=== PATIENT | male | born 1985 | race American Indian/Alaskan Native ===

== ENCOUNTER 2016-10-24 15:24 | Emergency (ER) | payer MEDICAID, OTHER ==
[2016-10-24 15:36] VITALS: BP 154/98
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
[2016-10-24] MEDS ORDERED: Iopamidol 612 MG/ML 150 ML Bottle IVPUSH ONE (15:55)
[2016-10-24] MEDS ORDERED: Sodium Chloride 0.9% 10 ML Syringe FLUSH ONE (15:55)
[2016-10-24] MEDS ORDERED: Ondansetron 4 MG/2 ML SDV IVPUSH ONE (16:42)
[2016-10-24] MEDS ORDERED: HYDROmorphone 0.5 MG/0.5 ML Syringe IVPUSH ONE (16:42)
--- NOTE | 2016-10-24 16:47 | CT ---
CT cervical spine Technique: Multiple axial sections were obtained from above C1 inferiorly to the bottom of T1. Reconstructed sagittal and coronal images were reviewed. Findings: Details of the exam are limited due to photon attenuation secondary to patient body habitus. Vertebral body heights and disc spaces are maintained. No definite fracture is seen. No bony central or bony neural foraminal stenosis is noted. Visualized mastoid sinuses and middle ear cavities are clear. Posterior skull base is intact. No abnormal subluxation is seen. Impression: 1. Diminished details as described above. Within this limitation, nothing acute is definitely appreciated. Diagnostic code #2
--- NOTE | 2016-10-24 16:48 | CT ---
Head CT Technique: Multiple axial sections through the brain were obtained. Intravenous contrast was not utilized. Findings: Slight soft tissue hematoma is noted posteriorly within the scalp. Ventricles along with basal cisterns and sulci over the convexities are within normal limits. No abnormal parenchymal densities are seen. No evidence of intracranial hemorrhage. No midline shift or mass effect is seen. Bone window settings shows slight mucosal thickening within the right maxillary and ethmoid sinuses which is incidental. No acute calvarial abnormality is appreciated. Impression: 1. Sinus findings which are felt to be incidental. 2. Small scalp hematoma posteriorly. 3. No acute intracranial abnormality is identified. Diagnostic code #2
--- NOTE | 2016-10-24 16:52 | CT ---
CT facial bones Technique: Multiple axial sections through the facial bones were obtained. Reconstructed coronal and sagittal images were reviewed. Findings: Slight mucosal thickening is again noted within the right maxillary and ethmoid sinuses. Right and left globes are symmetric. Extraocular muscles and optic nerves are symmetric. No facial bone fracture is identified. Impression: 1. Sinus findings are again noted which are felt to be incidental. 2. Nothing acute is appreciated on CT study of the facial bones. Diagnostic code #2
--- NOTE | 2016-10-24 17:01 | CT ---
CT chest Technique: Multiple axial sections through the chest were obtained. Intravenous contrast was utilized. Findings: Hazy soft tissue density is seen within the superior mediastinum which is believed to represent mild residual thymic tissue which is incidental. Mediastinum and hilar regions are otherwise unremarkable. No coronary artery calcification is seen. No pericardial thickening is seen. Mild dependent atelectasis is seen posteriorly within both lungs. Lungs otherwise are clear. No pulmonary contusion is seen. No pleural effusions or pneumothorax is identified. Bone window settings were reviewed shows no discrete rib fracture. Thoracic spine shows no discrete compression deformity. Reconstructed sagittal views shows no sternal fracture. Impression: 1. Incidental dependent atelectasis. 2. Nothing acute is seen on CT study of the chest. Diagnostic code #2 CT abdomen and pelvis Technique: Multiple axial sections were obtained from above the dome of the diaphragm inferiorly through the pubic symphysis. Intravenous contrast was utilized. No oral contrast has been given. Delayed images were obtained through the bladder. Comparison: No previous exam. Findings: Liver shows mild fatty infiltration. Spleen appears within normal limits. Adrenal glands are unremarkable. Kidneys show symmetric contrast enhancement without hydronephrosis or mass. Aorta shows no aneurysmal dilatation. No retroperitoneal adenopathy is seen. Appendix is seen which is normal. No pelvic mass or adenopathy is seen. No free fluid or inflammatory change is seen within the abdomen or pelvis. Delayed images shows contrast within the distal ureters and within the bladder. Bone window settings were reviewed which shows no discrete fracture within the pelvis. Lumbar spine shows no discrete fracture. Impression: 1. Fatty infiltration within the liver. 2. Nothing acute is identified on CT study of the abdomen and pelvis. Diagnostic code #2
[2016-10-24] MEDS ORDERED: LORazepam 2 MG/ML MDV IVPUSH ONE (17:45)
== END 2016-10-24 18:15 | disposition home or self-care (01) ==
LOC: JD.ED 15:24
DX: S00.81XA Abrasion of other part of head, initial encounter (principal); S50.812A Abrasion of left forearm, initial encounter; R10.84 Generalized abdominal pain; T14.8 Other injury of unspecified body region; Z98.890 Other specified postprocedural states; W50.1XXA Accidental kick by another person, initial encounter
CPT/HCPCS: 36415; 70450; 70486; 71260; 72125; 74177; 80053; 80306; 81001; 83690; 85025; 85610; 85730; 86140; 86850; 86900; 86901; 93005; 96374; 96375; 99285; G0480; J1170; J2060; J2405; J7050; Q9967; 99284

== ENCOUNTER 2019-03-02 13:40 | Emergency (ER) | payer SELFPAY ==
[2019-03-02 14:02] VITALS: BP 145/82; PULSE 88
--- NOTE | 2019-03-02 14:12 | EDM.PDOC ---
ED HPI GENERAL MEDICAL PROBLEM - General Chief Complaint: ENT Problem Stated Complaint: EAR PAIN Time Seen by Provider: 03/02/19 14:06 Source of Information: Reports: Patient History Limitations: Reports: No Limitations - History of Present Illness INITIAL COMMENTS - FREE TEXT/NARRATIVE: 33-year-old male of [place] ancestry presents to the ED with severe right ureter pain. States it started on Sunday night 5 days ago and has gradually intensified. Can't even touch the holes right side of his face or ear or airway on that side for the last 2 days. No noted drainage from the ear. Pain is worse if he touches his ear and feels pain both above his ear anterior to the ear and down along the angle of his mandible into his upper neck inferior to the ear. No known injury to the ear canal. He feels he may be have a mild upper SPECT tract infection. No fever or chills. Onset: Gradual Onset Date: 02/26/19 Duration: Day(s):, Getting Worse Location: Reports: Face (Right ear pain.) Quality: Reports: Ache ( Facial pain.), Pressure, Throbbing Severity: Severe (10 out of 10) Improves with: Reports: None Worsens with: Reports: Other Context: Denies: Activity, Exercise, Lifting, Sick Contact, Trauma, Other Associated Symptoms: Reports: No Other Symptoms Treatments MANAGER AUDIO: Reports: Acetaminophen Right Ear Pain Score (Numeric/FACES): 8 - Related Data Allergies Allergy/AdvReac Type Severity Reaction Status Date / Time No Known Allergies Allergy Verified 03/02/19 13:58 Home Meds: Home Meds Amoxicillin/Potassium Clav [Augmentin 500-125 Tablet] 1 each PO BID #16 tablet 03/02/19 [Rx] Hydrocort/Neomycin/Polymyxin B [Tnpleybz-Smglpkaua-JA Otic Susp] 10 ml .XX ASDIRECTED #1 bottle 03/02/19 [Rx] Omeprazole 20 mg PO DAILY 03/02/19 [History] PARoxetine HCl [Paxil] 20 mg PO DAILY 03/02/19 [History] oxyCODONE HCl/Acetaminophen [Percocet 10-325 mg Tablet] 1 each PO Q4H PRN #14 tablet 03/02/19 [Rx] Past Medical History Cardiovascular History: Reports: Hypertension Gastrointestinal History: Reports: GERD Other Musculoskeletal History: Right humerus fracture Psychiatric History: Reports: Depression - Past Surgical History HEENT Surgical History: Reports: Tonsillectomy Other Musculoskeletal Surgeries/Procedures:: ORIF of right humerus Social & Family History - Family History Family Medical History: Noncontributory - Tobacco Use Smoking Status *Q: Current Every Day Smoker Years of Tobacco use: 5 Packs/Tins Daily: 0.1 - Caffeine Use Caffeine Use: Reports: Soda - Recreational Drug Use Recreational Drug Use: No - Living Situation & Occupation Living situation: Reports: Single Occupation: Unemployed ED ROS ENT - Review of Systems Review Of Systems: See Below Constitutional: Reports: Fatigue, Decreased Appetite (From not sleeping.). Denies: Fever, Chills, Malaise HEENT: Reports: Ear Pain (Severe right ear pain especially to touch the area.), Other. Denies: Dental Pain, Ear Discharge Respiratory: Reports: No Symptoms (Right hemifacial pain.) Cardiovascular: Reports: No Symptoms Endocrine: Reports: No Symptoms GI/Abdominal: Reports: No Symptoms : Reports: No Symptoms Musculoskeletal: Reports: No Symptoms Skin: Reports: No Symptoms Neurological: Reports: No Symptoms Psychiatric: Reports: Depression Hematologic/Lymphatic: Reports: No Symptoms Immunologic: Reports: No Symptoms ED EXAM, ENT - Physical Exam Exam: See Below Exam Limited By: No Limitations General Appearance: Alert, WD/WN, Mild Distress, Other (Vital signs reveal a slightly elevated blood pressure 1 4582. Sats are 98% room air. Respiratory rate is 18. Pulse is 88 in sinus is afebrile) Eye Exam: Bilateral Eye: Normal Inspection Ears: Normal TMs, Canal Swelling (Severe canal swelling is appreciated in the floor of the ear canal and anterior aspect of the ear canal on the right side. The left is normal. Any touching or tugging slightly on the tragus or the ear pinna lower interlobe causes intense pain in his ear. Was no abscess that was amenable to drainage. And/or fluid appreciated. The tympanic membrane is normal on the right side.), Other (There is pain both posterior and anterior to the right ear. Pain along the angle of the mandible but no definitive evidence of peritonitis.) Mouth/Throat: Normal Inspection, Normal Gums, Normal Lips, Normal Teeth, Other ( No evidence of dental infection.) Head: Atraumatic, Normocephalic Neck: Normal Inspection, Supple, Full Range of Motion, Lymphadenopathy (R) Respiratory/Chest: No Respiratory Distress, Lungs Clear, Normal Breath Sounds, No Accessory Muscle Use Cardiovascular: Normal Peripheral Pulses, Regular Rate, Rhythm, No Edema, No Gallop, No Murmur, No Rub Course - Vital Signs Last Recorded V/S: Last Vital Signs Temp 36.4 C 03/02/19 13:59 Pulse 88 03/02/19 13:59 Resp 18 03/02/19 13:59 BP 145/82 H 03/02/19 13:59 Pulse Ox 98 03/02/19 13:59 - Radiology Interpretation Free Text/Narrative:: 33-year-old male presents to the ED with severe pain in his right ear and blaire- face for the last 5 days gradually worsening over that period of time. Examination reveals any tugging on the right ear pinna or the tragus of the ear causes intense pain in the right ear. On inspection there is a membrane is normal on the left side. On inspection of the right side there is marked swelling of the floor of the ear canal on the right side but still I can visualize the tympanic membrane. Pain is worsened when he tries to clench on that side. There is no evidence of peritonitis. He does have some mild anterior lymphadenopathy as well as inferior lymphadenopathy at the angle of the mandible. Treated therefore with Augmentin 500/125 mg tablet twice daily for the next 8 days. Cortisporin drops 2 drops to the right ear every 2 hours for the next 36 hours and then 4 times daily until better. Percocet tabs 10/325 mg one every 4-6 hours necessary for pain relief 14 tabs. Likely be about 3 days before he gets complete pain relief. Follow-up if not better in 4-5 days. Departure - Departure Time of Disposition: 14:06 Disposition: Home, Self-Care 01 Condition: Fair Clinical Impression: External otitis Qualifiers: Noninfectious otitis externa type: unspecified noninfectious type Chronicity: acute Laterality: right - Discharge Information *PRESCRIPTION DRUG MONITORING PROGRAM REVIEWED*: Not Applicable *COPY OF PRESCRIPTION DRUG MONITORING REPORT IN PATIENT CHUCK: Not Applicable Prescriptions: Amoxicillin/Potassium Clav [Augmentin 500-125 Tablet] 1 each PO BID #16 tablet Hydrocort/Neomycin/Polymyxin B [Rkokgkda-Fvicdiwuj-FT Otic Susp] 10 ml .XX ASDIRECTED #1 bottle oxyCODONE HCl/Acetaminophen [Percocet 10-325 mg Tablet] 1 each PO Q4H PRN #14 tablet PRN Reason: Severe right ear pain Referrals: PCP,None [Primary Care Provider] - Forms: ED Department Discharge Additional Instructions: Evaluation the emergent today in regards to severe pain right ear gradually worsening over the last 5 days. No noted drainage from the ear. As you identified you can't hardly touch the right side of your face due to the severity of the pain. Examination you have an acute infection in the floor of your right ear canal. On task and be caused by water's sitting in the middle ear canal after having a shower or irritation of the ear canal from a Q-tip. An infection is introduced into the skin on the floor of the ear canal causing the severe pain in the right side of your face. Treatment is Cortisporin optic drops 2 drops to the right ear every 2 hours for the first day and a half and then 2 drops every 4 hours for 2 days then 2 drops 4 times daily until better. When you can provide your canal up after day 7 and no further pain he may stop the drops. Otherwise continue for full 10 days. Said 10/325 mg tabs 1 every 6 hours as necessary for pain relief with Motrin 600 mg every 6 hours to relieve pain and inflammation. Antibiotic by mouth is Augmentin 500/125 mg. 1 tablet twice daily for the next 8 days to clear up infection. Expect marked improvement over the next 48-72 hours. Try keep all water out of the inferior when you in the shower. May plug with cotton cole and take it out of synergy get out of the shower.
== END 2019-03-02 14:34 | disposition home or self-care (01) ==
LOC: JD.ED 13:40
DX: H60.91 Unspecified otitis externa, right ear (principal); I10 Essential (primary) hypertension; K21.9 Gastro-esophageal reflux disease without esophagitis; F32.9 Major depressive disorder, single episode, unspecified; F17.210 Nicotine dependence, cigarettes, uncomplicated; Z79.899 Other long term (current) drug therapy
CPT/HCPCS: 99282; 99283

== ENCOUNTER 2020-10-16 15:26 | Inpatient (IN) | payer SELFPAY ==
--- NOTE | 2020-10-16 16:27 | EDM.PDOC ---
ED HPI GENERAL MEDICAL PROBLEM - General Chief Complaint: Respiratory Problem Stated Complaint: [facility] AMB Time Seen by Provider: 10/16/20 15:44 Source of Information: Reports: Patient History Limitations: Reports: No Limitations - History of Present Illness INITIAL COMMENTS - FREE TEXT/NARRATIVE: 35-year-old male presents the emergency department via [facility] with complaints of cough, shortness of breath, fever, chills, nausea, vomiting, diarrhea, decreased sense of taste and smell and body aches. Patient states he was diagnosed with Covid 3 days ago however developed symptoms approximately 7 days ago. He states that it started out as what he thought was a sinus infection however it progressed to all the above symptoms. He also admits to having a very poor appetite and has not been able to eat or drink much of anything over the course the past few days. Patient denies any significant medical history other than depression and anxiety for which he takes Zoloft and Ativan. He denies smoking, alcohol or illicit drug use. Patient is currently on oxygen at 4 L per nasal cannula with O2 saturations 92 to 93%. - Related Data Allergies Allergy/AdvReac Type Severity Reaction Status Date / Time No Known Allergies Allergy Verified 03/02/19 13:58 Home Meds: Home Meds Amoxicillin/Potassium Clav [Augmentin 500-125 Tablet] 1 each PO BID #16 tablet 03/02/19 [Rx] Hydrocort/Neomycin/Polymyxin B [Ajalbfsz-Rqvawmrru-SO Otic Susp] 10 ml .XX ASDIRECTED #1 bottle 03/02/19 [Rx] Omeprazole 20 mg PO DAILY 03/02/19 [History] PARoxetine HCl [Paxil] 20 mg PO DAILY 03/02/19 [History] oxyCODONE HCl/Acetaminophen [Percocet 10-325 mg Tablet] 1 each PO Q4H PRN #14 tablet 03/02/19 [Rx] Past Medical History Cardiovascular History: Reports: Hypertension Gastrointestinal History: Reports: GERD Other Musculoskeletal History: Right humerus fracture Psychiatric History: Reports: Depression - Infectious Disease History Infectious Disease History: Reports: Novel Coronavirus - Past Surgical History HEENT Surgical History: Reports: Tonsillectomy Other Musculoskeletal Surgeries/Procedures:: ORIF of right humerus Social & Family History - Family History Family Medical History: No Pertinent Family History - Tobacco Use Tobacco Use Status *Q: Never Tobacco User Second Hand Smoke Exposure: No - Caffeine Use Caffeine Use: Reports: Coffee, Soda - Recreational Drug Use Recreational Drug Use: No - Living Situation & Occupation Living situation: Reports: Single Occupation: Unemployed ED ROS GENERAL - Review of Systems Review Of Systems: Comprehensive ROS is negative, except as noted in HPI. ED EXAM, GENERAL - Physical Exam Exam: See Below Exam Limited By: No Limitations General Appearance: Alert, WD/WN, Mild Distress Ears: Normal External Exam, Hearing Grossly Normal Nose: Normal Inspection Throat/Mouth: Normal Inspection, Normal Lips, Normal Voice, No Airway Compromise Head: Atraumatic Neck: Normal Inspection, Supple Respiratory/Chest: Lungs Clear, Chest Non-Tender, Decreased Breath Sounds Cardiovascular: Normal Peripheral Pulses, Regular Rate, Rhythm, No Edema, No Murmur Peripheral Pulses: 2+: Radial (L), Radial (R) GI/Abdominal: Normal Bowel Sounds, Soft, Non-Tender, No Distention (Male) Exam: Deferred Rectal (Males) Exam: Deferred Back Exam: Normal Inspection Extremities: Normal Inspection Neurological: Alert, Oriented, Normal Cognition Psychiatric: Normal Affect, Normal Mood Skin Exam: Warm, Dry, Intact, Normal Color, No Rash Lymphatic: No Adenopathy Course - Vital Signs Text/Narrative:: Upon assessment, the patient is short of breath at rest. Lung sounds are diminished however it is difficult as the patient is obese with a BMI of 48.8. He denies a productive cough of any sputum. I have placed him on room air and will order arterial blood gases. Respiratory therapy has been notified of this. I have ordered labs via the [employer], including a chest x-ray, EKG and blood cultures x2. Last Recorded V/S: Last Vital Signs Temp 98.0 F 10/16/20 15:43 Pulse 102 H 10/16/20 15:43 Resp 25 H 10/16/20 15:43 BP 108/68 10/16/20 15:43 Pulse Ox 92 L 10/16/20 15:43 - Orders/Labs/Meds Orders: Active Orders 24 hr Category Date Time Status EKG Documentation Completion [RC] STAT Care 10/16/20 16:00 Active Nurse Communication: Isolation [RC] ASDIRECTED Care 10/16/20 16:00 Active Chest 1V Frontal [CR] Stat Exams 10/16/20 16:00 Taken BASIC METABOLIC PANEL,BMP [CHEM] Stat Lab 10/16/20 16:20 Received C-REACTIVE PROTEIN [CHEM] Stat Lab 10/16/20 16:20 Received CULTURE BLOOD [BC] Stat Lab 10/16/20 16:20 Received CULTURE BLOOD [BC] Stat Lab 10/16/20 16:32 Received FERRITIN [CHEM] Routine Lab 10/16/20 16:20 Received HEPATIC FUNCTION PANEL,HFP [CHEM] Stat Lab 10/16/20 16:20 Received LACTATE DEHYDROGENASE,LDH [CHEM] Stat Lab 10/16/20 16:20 Received LACTIC ACID [CHEM] Stat Lab 10/16/20 16:20 Received UA W/DANNY RFLX IF INDICATED [URIN] Routine Lab 10/16/20 15:59 Ordered Blood Culture x2 Reflex Set [OM.PC] Stat Oth 10/16/20 16:02 Ordered Isolation [COMM] Stat Oth 10/16/20 15:59 Ordered Medication Orders Remdesivir 200 mg/ Sodium (Chloride) 250 mls @ 250 mls/hr IV ONETIME ONE Stop: 10/16/20 18:16 Labs: Laboratory Tests 10/16/20 10/16/20 10/16/20 Range/Units 16:20 16:20 16:21 WBC 7.78 (4.23-9.07) K/mm3 RBC 5.13 (4.63-6.08) M/mm3 Hgb 13.8 (13.7-17.5) gm/dl Hct 42.0 (40.1-51.0) % MCV 81.9 D (79.0-92.2) fl MCH 26.9 (25.7-32.2) pg MCHC 32.9 (32.2-35.5) g/dl RDW Std Deviation 42.1 (35.1-43.9) fL Plt Count 269 (163-337) K/mm3 MPV 10.8 (9.4-12.3) fl Neut % (Auto) 87.3 H (34.0-67.9) % Lymph % (Auto) 7.3 L (21.8-53.1) % Mclean % (Auto) 5.3 (5.3-12.2) % Eos % (Auto) 0 L (0.8-7.0) Baso % (Auto) 0.0 L (0.1-1.2) % Neut # (Auto) 6.79 H (1.78-5.38) K/mm3 Lymph # (Auto) 0.57 L (1.32-3.57) K/mm3 Mclean # (Auto) 0.41 (0.30-0.82) K/mm3 Eos # (Auto) 0.00 L (0.04-0.54) K/mm3 Baso # (Auto) 0.00 L (0.01-0.08) K/mm3 PT 10.9 (9.7-12.0) SECONDS INR 1.02 APTT 28.5 (21.7-31.4) SECONDS D-Dimer, Quantitative 0.26 (0.19-0.50) mg/L Puncture Site Rt radial ABG pH 7.41 (7.35-7.45) ABG pCO2 30.8 L (35.0-45.0) mmHg ABG pO2 56.0 L (80.0-100.0) mmHg ABG HCO3 19.0 L (22.0-26.0) meq/L ABG O2 Saturation 86.5 L (96.0-97.0) % ABG Base Excess -4.1 L (-2-2.0) Deion Test Positive O2 Delivery Device Room air Meds: Medications Generic Name Dose Route Start Last Admin Trade Name Freq PRN Reason Stop Dose Admin Remdesivir 200 mg/ Sodium 250 mls @ 250 mls/hr 10/16/20 17:17 Chloride IV 10/16/20 18:16 ONETIME ONE Discontinued Medications Generic Name Dose Route Start Last Admin Trade Name Freq PRN Reason Stop Dose Admin Dexamethasone 6 mg 10/16/20 17:17 Dexamethasone 4 Mg/Ml 5 Ml Mdv IV 10/16/20 17:18 ONETIME ONE - Re-Assessments/Exams Free Text/Narrative Re-Assessment/Exam: 10/16/20 17:30 Hematology reveals a WBC of 7.78, hemoglobin 13.8, hematocrit 42.0, platelet count 269, D-dimer 0.26, ABGs reveal a PCO2 of 30.8, PO2 of 56.0, HCO3 19.0, base excess -4.1 Remainder of the labs are not back yet however Dr. Flynn is here and has seen the patient. He has agreed to admit the patient under his services. He request that I order remdesivir 200 mg IV x1 dose as well as dexamethasone 6 mg IV x1 dose. Nothing acute is appreciated on chest x-ray however formal radiologist report is pending. Departure - Departure Time of Disposition: 17:30 Disposition: Admitted As Inpatient 67 Condition: Fair Clinical Impression: Acute hypoxemic respiratory failure due to COVID-19 - Discharge Information Sepsis Event Note (ED) - Evaluation Sepsis Screening Result: No Definite Risk - Focused Exam Vital Signs: Vital Signs Temp Pulse Resp BP Pulse Ox 10/16/20 15:43 98.0 F 102 H 25 H 108/68 92 L - My Orders Last 24 Hours: My Active Orders 10/16/20 15:59 UA W/DANNY RFLX IF INDICATED [URIN] Routine Isolation [COMM] Stat 10/16/20 16:00 EKG Documentation Completion [RC] STAT Nurse Communication: Isolation [RC] ASDIRECTED Chest 1V Frontal [CR] Stat 10/16/20 16:02 Blood Culture x2 Reflex Set [OM.PC] Stat 10/16/20 16:20 BASIC METABOLIC PANEL,BMP [CHEM] Stat C-REACTIVE PROTEIN [CHEM] Stat CULTURE BLOOD [BC] Stat FERRITIN [CHEM] Routine HEPATIC FUNCTION PANEL,HFP [CHEM] Stat LACTATE DEHYDROGENASE,LDH [CHEM] Stat LACTIC ACID [CHEM] Stat 10/16/20 16:32 CULTURE BLOOD [BC] Stat - Assessment/Plan Last 24 Hours: My Active Orders 10/16/20 15:59 UA W/DANNY RFLX IF INDICATED [URIN] Routine Isolation [COMM] Stat 10/16/20 16:00 EKG Documentation Completion [RC] STAT Nurse Communication: Isolation [RC] ASDIRECTED Chest 1V Frontal [CR] Stat 10/16/20 16:02 Blood Culture x2 Reflex Set [OM.PC] Stat 10/16/20 16:20 BASIC METABOLIC PANEL,BMP [CHEM] Stat C-REACTIVE PROTEIN [CHEM] Stat CULTURE BLOOD [BC] Stat FERRITIN [CHEM] Routine HEPATIC FUNCTION PANEL,HFP [CHEM] Stat LACTATE DEHYDROGENASE,LDH [CHEM] Stat LACTIC ACID [CHEM] Stat 10/16/20 16:32 CULTURE BLOOD [BC] Stat
--- NOTE | 2020-10-16 17:06 | PCM.HP.2 ---
H&P History of Present Illness - General Date of Service: 10/16/20 Admit Problem/Dx: Admission Diagnosis/Problem Admission Diagnosis/Problem Respiratory failure with hypoxia, COVID-19 Pneumonitis Source of Information: Patient - History of Present Illness Initial Comments - Free Text/Narative: Patient is a 35-year-old male with no significant past medical history other than depression and anxiety who presents to the [facility] emergency department with 7 days of cold-like symptoms including rhinorrhea, cough (nonproductive), general muscle and joint aches and pains, nausea/vomiting transiently, and occasional diarrhea. Has had generalized abdominal cramps and discomfort without any specific radiation pattern. No black or blood noted in the vomitus or with bowel movements. No recent sick contacts. No recent travel. Within the past 24 to 36 hours he has started to notice shortness of breath with exertion, and now worse even at rest. This was the main symptom that worried him to most in order to come to the emergency department. He had EMS summoned to the house. He lives alone. He was found to be hypoxic in the field. Patient was placed on supplemental oxygen. He has been requiring 2 to 4 L to stay above 92%. He has been tachypneic and in mild respiratory distress. The patient denies fever. Claims poor p.o. intake for the past day. Patient positive for acute COVID-19. Due to hypoxia patient was referred to the internal medicine service for ongoing treatment. CODE STATUS: Full code. 14 point review of systems was reviewed with the patient entirely and only pert inent for the above information. - Related Data Allergies/Adverse Reactions: Allergies Allergy/AdvReac Type Severity Reaction Status Date / Time No Known Allergies Allergy Verified 03/02/19 13:58 Home Medications: Home Meds Amoxicillin/Potassium Clav [Augmentin 500-125 Tablet] 1 each PO BID #16 tablet 03/02/19 [Rx] Hydrocort/Neomycin/Polymyxin B [Bperxzeu-Mnezhxwxj-AM Otic Susp] 10 ml .XX ASDIRECTED #1 bottle 03/02/19 [Rx] Omeprazole 20 mg PO DAILY 03/02/19 [History] PARoxetine HCl [Paxil] 20 mg PO DAILY 03/02/19 [History] oxyCODONE HCl/Acetaminophen [Percocet 10-325 mg Tablet] 1 each PO Q4H PRN #14 tablet 03/02/19 [Rx] Past Medical History Cardiovascular History: Reports: Hypertension Gastrointestinal History: Reports: GERD Other Musculoskeletal History: Right humerus fracture Psychiatric History: Reports: Anxiety, Depression - Infectious Disease History Infectious Disease History: Reports: Novel Coronavirus - Past Surgical History HEENT Surgical History: Reports: Tonsillectomy Other Musculoskeletal Surgeries/Procedures:: ORIF of right humerus Social & Family History - Family History Family Medical History: No Pertinent Family History - Tobacco Use Tobacco Use Status *Q: Never Tobacco User Second Hand Smoke Exposure: No - Caffeine Use Caffeine Use: Reports: Coffee, Soda - Recreational Drug Use Recreational Drug Use: No - Living Situation & Occupation Living situation: Reports: Single Occupation: Unemployed H&P Review of Systems - Review of Systems: Review Of Systems: Comprehensive ROS is negative, except as noted in HPI. Exam - Exam Exam: See Below - Vital Signs Vital Signs: Last Vital Signs Temp 98.0 F 10/16/20 15:43 Pulse 102 H 10/16/20 15:43 Resp 25 H 10/16/20 15:43 BP 108/68 10/16/20 15:43 Pulse Ox 92 L 10/16/20 15:43 Weight: 380 lb - Exam Quality Assessment: Supplemental Oxygen General: Alert, Cooperative, Mild Distress HEENT: Conjunctiva Clear, Nares Patent, Pupils Equal Neck: Supple, Trachea Midline Lungs: Decreased Breath Sounds, Rales (right middle and lower acosta) Cardiovascular: Tachycardia GI/Abdominal Exam: Normal Bowel Sounds, Soft, Non-Tender, No Distention Extremities: Normal Inspection, No Pedal Edema Skin: Other (multiple tattoos) Neurological: Cranial Nerves Intact Neuro Extensive - Motor, Sensory, Reflexes: CN II-XII Intact Psychiatric: Anxious - Patient Data Lab Results Last 24 hrs: Laboratory Results - last 24 hr 10/16/20 10/16/20 Range/Units 16:20 16:21 WBC 7.78 (4.23-9.07) K/mm3 RBC 5.13 (4.63-6.08) M/mm3 Hgb 13.8 (13.7-17.5) gm/dl Hct 42.0 (40.1-51.0) % MCV 81.9 D (79.0-92.2) fl MCH 26.9 (25.7-32.2) pg MCHC 32.9 (32.2-35.5) g/dl RDW Std Deviation 42.1 (35.1-43.9) fL Plt Count 269 (163-337) K/mm3 MPV 10.8 (9.4-12.3) fl Neut % (Auto) 87.3 H (34.0-67.9) % Lymph % (Auto) 7.3 L (21.8-53.1) % [place] % (Auto) 5.3 (5.3-12.2) % Eos % (Auto) 0 L (0.8-7.0) Baso % (Auto) 0.0 L (0.1-1.2) % Neut # (Auto) 6.79 H (1.78-5.38) K/mm3 Lymph # (Auto) 0.57 L (1.32-3.57) K/mm3 [place] # (Auto) 0.41 (0.30-0.82) K/mm3 Eos # (Auto) 0.00 L (0.04-0.54) K/mm3 Baso # (Auto) 0.00 L (0.01-0.08) K/mm3 Puncture Site Rt radial ABG pH 7.41 (7.35-7.45) ABG pCO2 30.8 L (35.0-45.0) mmHg ABG pO2 56.0 L (80.0-100.0) mmHg ABG HCO3 19.0 L (22.0-26.0) meq/L ABG O2 Saturation 86.5 L (96.0-97.0) % ABG Base Excess -4.1 L (-2-2.0) Deion Test Positive O2 Delivery Device Room air Result Diagrams: 10/16/20 16:20 Imaging Impressions Last 24 hrs: Chest x-ray showing bilateral interstitial edema throughout. Formal reading pending. Sepsis Event Note - Evaluation Sepsis Screening Result: No Definite Risk - Focused Exam Vital Signs: Vital Signs Temp Pulse Resp BP Pulse Ox 10/16/20 15:43 98.0 F 102 H 25 H 108/68 92 L Problem List Initiated/Reviewed/Updated: Yes Orders Last 24hrs: Active Orders 24 hr Category Date Time Status Patient Status [ADT] Routine ADT 10/16/20 16:56 Ordered EKG Documentation Completion [RC] STAT Care 10/16/20 16:00 Active Nurse Communication: Isolation [RC] ASDIRECTED Care 10/16/20 16:00 Active Oxygen Therapy [RC] PRN Care 10/16/20 16:56 Ordered VTE/DVT Education [RC] PER UNIT ROUTINE Care 10/16/20 16:56 Ordered Vital Signs [RC] Q4H Care 10/16/20 16:56 Ordered Chest 1V Frontal [CR] Stat Exams 10/16/20 16:00 Ordered BASIC METABOLIC PANEL,BMP [CHEM] Stat Lab 10/16/20 16:20 Received C-REACTIVE PROTEIN [CHEM] Stat Lab 10/16/20 16:20 Received CULTURE BLOOD [BC] Stat Lab 10/16/20 16:20 Received CULTURE BLOOD [BC] Stat Lab 10/16/20 16:32 Received D-DIMER QUANTITATIVE [COAG] Stat Lab 10/16/20 16:20 Received FERRITIN [CHEM] Routine Lab 10/16/20 16:20 Received HEPATIC FUNCTION PANEL,HFP [CHEM] Stat Lab 10/16/20 16:20 Received INR,PT,PROTHROMBIN TIME [COAG] Routine Lab 10/16/20 16:20 Received LACTATE DEHYDROGENASE,LDH [CHEM] Stat Lab 10/16/20 16:20 Received LACTIC ACID [CHEM] Stat Lab 10/16/20 16:20 Received PTT,PARTIAL THROMBOPLSTIN TIME [COAG] Routine Lab 10/16/20 16:20 Received UA W/DANNY RFLX IF INDICATED [URIN] Routine Lab 10/16/20 15:59 Ordered Blood Culture x2 Reflex Set [OM.PC] Stat Oth 10/16/20 16:02 Ordered Isolation [COMM] Stat Oth 10/16/20 15:59 Ordered Resuscitation Status Routine Resus Stat 10/16/20 16:56 Ordered Assessment/Plan Comment:: 35-year-old male with a past medical history as listed above who presents to the [facility] emergency department with acute hypoxic respiratory failure secondary to acute COVID-19 pneumonitis. 1. Acute hypoxic respiratory failure Secondary to acute COVID-19 pneumonitis. Initiate dexamethasone and remdesivir. Respiratory therapy consult with supplemental oxygen as necessary to titrate to goal of greater than 92%. If patient progresses to requiring more than 10 L of supplemental oxygen the patient will be given convalescent plasma and Tocilizumab. Incentive spirometry. Proning as instructed. Patient has been educated as to the importance of prone positioning. 2. Acute COVID-19 pneumonitis. Plan as above. Add supplemental zinc and vitamin C to regimen. Plan as above as per corticosteroids, remdesivir, convalescent plasma and Tocilizumab. Respiratory treatments as noted above. Bronchodilator inhalers as needed. Hypercoagulable prophylaxis to be determined once all inflammatory markers have been resulted. 3. Anxiety and depression. Patient takes Zoloft and Ativan. We will continue. CODE STATUS: Full code. DVT prophylaxis with enoxaparin.
[2020-10-16] MEDS ORDERED: Dexamethasone 4 MG/ML 5 ML MDV IV ONE (17:17)
[2020-10-16] MEDS ORDERED: REMDESIVIR 200 MG in Sodium Chloride 0.9% 250 ML IV ONE (17:17)
[2020-10-16] MEDS ORDERED: Acetaminophen 325 MG Tab PO PRN (17:26)
[2020-10-16] MEDS ORDERED: Albuterol 0.083% 2.5 MG/3 ML Neb Soln NEB PRN (17:26)
[2020-10-16] MEDS ORDERED: Docusate Sodium 100 MG Cap PO PRN (17:26)
[2020-10-16] MEDS ORDERED: Ondansetron 4 MG Tab.DIS PO PRN (17:26)
[2020-10-16] MEDS ORDERED: Ondansetron 4 MG/2 ML SDV IV PRN (17:26)
--- NOTE | 2020-10-16 20:17 | PCM.EKG ---
#1 Interpretation EKG Date: 10/16/20 Time: 16:20 Rhythm: NSR Rate (Beats/Min): 100 [place]: Normal P-Wave: Present QRS: Normal ST-T: Normal QT: Normal Comparison: NA - No Prior EKG EKG Interpretation Comments: Per Dr. Quevedo interpretation: Sinus tachycardia rate 100; normal QRS; small Q waves in lead III
--- NOTE | 2020-10-17 07:43 | PCM.PN ---
- General Info Date of Service: 10/17/20 Admission Dx/Problem (Free Text): Admission Diagnosis/Problem Admission Diagnosis/Problem Respiratory failure with hypoxia, COVID-19 Pneumonitis Subjective Update: No acute events overnight. No specific nursing concerns. Remains on 3 L supplemental nasal oxygen. Patient proning for a good portion of the night. Continues to use incentive spirometry techniques. Patient states that he feels better but still has some central chest discomfort with coughing and deep breathing. Denies fever. No abdominal complaints or difficulties with voiding. - Patient Data Vitals - Most Recent: Last Vital Signs Temp 97.9 F 10/17/20 04:56 Pulse 65 10/17/20 04:56 Resp 15 10/17/20 04:56 BP 129/88 10/17/20 04:56 Pulse Ox 95 10/17/20 04:56 Weight - Most Recent: 369 lb 1.6 oz I&O - Last 24 Hours: Intake & Output 10/16/20 10/17/20 10/17/20 22:59 06:59 14:59 Intake Total 1450 Output Total 1375 Balance 75 Lab Results Last 24 Hours: Laboratory Results - last 24 hr 10/16/20 10/16/20 10/16/20 Range/Units 16:20 16:20 16:20 WBC 7.78 (4.23-9.07) K/mm3 RBC 5.13 (4.63-6.08) M/mm3 Hgb 13.8 (13.7-17.5) gm/dl Hct 42.0 (40.1-51.0) % MCV 81.9 D (79.0-92.2) fl MCH 26.9 (25.7-32.2) pg MCHC 32.9 (32.2-35.5) g/dl RDW Std Deviation 42.1 (35.1-43.9) fL Plt Count 269 (163-337) K/mm3 MPV 10.8 (9.4-12.3) fl Neut % (Auto) 87.3 H (34.0-67.9) % Lymph % (Auto) 7.3 L (21.8-53.1) % [place] % (Auto) 5.3 (5.3-12.2) % Eos % (Auto) 0 L (0.8-7.0) Baso % (Auto) 0.0 L (0.1-1.2) % Neut # (Auto) 6.79 H (1.78-5.38) K/mm3 Lymph # (Auto) 0.57 L (1.32-3.57) K/mm3 [place] # (Auto) 0.41 (0.30-0.82) K/mm3 Eos # (Auto) 0.00 L (0.04-0.54) K/mm3 Baso # (Auto) 0.00 L (0.01-0.08) K/mm3 Manual Slide Review PT 10.9 (9.7-12.0) SECONDS INR 1.02 APTT 28.5 (21.7-31.4) SECONDS D-Dimer, Quantitative 0.26 (0.19-0.50) mg/L Puncture Site ABG pH (7.35-7.45) ABG pCO2 (35.0-45.0) mmHg ABG pO2 (80.0-100.0) mmHg ABG HCO3 (22.0-26.0) meq/L ABG O2 Saturation (96.0-97.0) % ABG Base Excess (-2-2.0) Deion Test O2 Delivery Device Sodium (136-145) mEq/L Potassium (3.5-5.1) mEq/L Chloride (98-107) mEq/L Carbon Dioxide (21-32) mEq/L Anion Gap (5-15) BUN (7-18) mg/dL Creatinine (0.7-1.3) mg/dL Est Cr Clr Drug Dosing mL/min Estimated GFR (MDRD) (>60) mL/min BUN/Creatinine Ratio (14-18) Glucose (70-99) mg/dL Lactic Acid (0.4-2.0) mmol/L Calcium (8.5-10.1) mg/dL Ferritin 184 (26-388) ng/ml Total Bilirubin (0.2-1.0) mg/dL Direct Bilirubin (0.0-0.2) mg/dl Indirect Bilirubin AST (15-37) U/L ALT (16-63) U/L Alkaline Phosphatase (46-116) U/L Lactate Dehydrogenase (85-227) U/L C-Reactive Protein (<1.0) mg/dL Total Protein (6.4-8.2) g/dl Albumin (3.4-5.0) g/dl Globulin gm/dL Albumin/Globulin Ratio (1-2) Urine Color (Yellow) Urine Appearance (Clear) Urine pH (5.0-8.0) Ur Specific [place] (1.005-1.030) Urine Protein (Negative) Urine Glucose (UA) (Negative) Urine Ketones (Negative) Urine Occult Blood (Negative) Urine Nitrite (Negative) Urine Bilirubin (Negative) Urine Urobilinogen (0.2-1.0) Ur Leukocyte Esterase (Negative) Urine RBC (0-5) /hpf Urine WBC (0-5) /hpf Ur Epithelial Cells (0-5) /hpf Urine Bacteria (FEW) /hpf Urine Mucus (FEW) /hpf 10/16/20 10/16/20 10/16/20 Range/Units 16:20 16:20 16:21 WBC (4.23-9.07) K/mm3 RBC (4.63-6.08) M/mm3 Hgb (13.7-17.5) gm/dl Hct (40.1-51.0) % MCV (79.0-92.2) fl MCH (25.7-32.2) pg MCHC (32.2-35.5) g/dl RDW Std Deviation (35.1-43.9) fL Plt Count (163-337) K/mm3 MPV (9.4-12.3) fl Neut % (Auto) (34.0-67.9) % Lymph % (Auto) (21.8-53.1) % [place] % (Auto) (5.3-12.2) % Eos % (Auto) (0.8-7.0) Baso % (Auto) (0.1-1.2) % Neut # (Auto) (1.78-5.38) K/mm3 Lymph # (Auto) (1.32-3.57) K/mm3 [place] # (Auto) (0.30-0.82) K/mm3 Eos # (Auto) (0.04-0.54) K/mm3 Baso # (Auto) (0.01-0.08) K/mm3 Manual Slide Review PT (9.7-12.0) SECONDS INR APTT (21.7-31.4) SECONDS D-Dimer, Quantitative (0.19-0.50) mg/L Puncture Site Rt radial ABG pH 7.41 (7.35-7.45) ABG pCO2 30.8 L (35.0-45.0) mmHg ABG pO2 56.0 L (80.0-100.0) mmHg ABG HCO3 19.0 L (22.0-26.0) meq/L ABG O2 Saturation 86.5 L (96.0-97.0) % ABG Base Excess -4.1 L (-2-2.0) Deion Test Positive O2 Delivery Device Room air Sodium 138 (136-145) mEq/L Potassium 3.4 L (3.5-5.1) mEq/L Chloride 103 (98-107) mEq/L Carbon Dioxide 21 (21-32) mEq/L Anion Gap 17.4 H (5-15) BUN 15 (7-18) mg/dL Creatinine 1.2 (0.7-1.3) mg/dL Est Cr Clr Drug Dosing 100.85 mL/min Estimated GFR (MDRD) > 60 (>60) mL/min BUN/Creatinine Ratio 12.5 L (14-18) Glucose 111 H (70-99) mg/dL Lactic Acid 1.4 (0.4-2.0) mmol/L Calcium 7.7 L (8.5-10.1) mg/dL Ferritin (26-388) ng/ml Total Bilirubin 0.4 (0.2-1.0) mg/dL Direct Bilirubin 0.10 (0.0-0.2) mg/dl Indirect Bilirubin 0.30 AST 34 (15-37) U/L ALT 40 (16-63) U/L Alkaline Phosphatase 68 (46-116) U/L Lactate Dehydrogenase 326 H (85-227) U/L C-Reactive Protein 5.4 H* (<1.0) mg/dL Total Protein 7.8 (6.4-8.2) g/dl Albumin 3.3 L (3.4-5.0) g/dl Globulin 4.5 gm/dL Albumin/Globulin Ratio 0.7 L (1-2) Urine Color (Yellow) Urine Appearance (Clear) Urine pH (5.0-8.0) Ur Specific [place] (1.005-1.030) Urine Protein (Negative) Urine Glucose (UA) (Negative) Urine Ketones (Negative) Urine Occult Blood (Negative) Urine Nitrite (Negative) Urine Bilirubin (Negative) Urine Urobilinogen (0.2-1.0) Ur Leukocyte Esterase (Negative) Urine RBC (0-5) /hpf Urine WBC (0-5) /hpf Ur Epithelial Cells (0-5) /hpf Urine Bacteria (FEW) /hpf Urine Mucus (FEW) /hpf 10/16/20 10/17/20 10/17/20 Range/Units 22:14 05:55 05:55 WBC 5.40 (4.23-9.07) K/mm3 RBC 4.85 (4.63-6.08) M/mm3 Hgb 13.0 L (13.7-17.5) gm/dl Hct 40.2 (40.1-51.0) % MCV 82.9 (79.0-92.2) fl MCH 26.8 (25.7-32.2) pg MCHC 32.3 (32.2-35.5) g/dl RDW Std Deviation 43.5 (35.1-43.9) fL Plt Count 248 (163-337) K/mm3 MPV 10.4 (9.4-12.3) fl Neut % (Auto) 80.9 H (34.0-67.9) % Lymph % (Auto) 11.1 L (21.8-53.1) % [place] % (Auto) 7.6 (5.3-12.2) % Eos % (Auto) 0 L (0.8-7.0) Baso % (Auto) 0.0 L (0.1-1.2) % Neut # (Auto) 4.37 (1.78-5.38) K/mm3 Lymph # (Auto) 0.60 L (1.32-3.57) K/mm3 [place] # (Auto) 0.41 (0.30-0.82) K/mm3 Eos # (Auto) 0.00 L (0.04-0.54) K/mm3 Baso # (Auto) 0.00 L (0.01-0.08) K/mm3 Manual Slide Review Normal smear PT (9.7-12.0) SECONDS INR APTT (21.7-31.4) SECONDS D-Dimer, Quantitative (0.19-0.50) mg/L Puncture Site ABG pH (7.35-7.45) ABG pCO2 (35.0-45.0) mmHg ABG pO2 (80.0-100.0) mmHg ABG HCO3 (22.0-26.0) meq/L ABG O2 Saturation (96.0-97.0) % ABG Base Excess (-2-2.0) Deion Test O2 Delivery Device Sodium 141 (136-145) mEq/L Potassium 3.8 (3.5-5.1) mEq/L Chloride 106 (98-107) mEq/L Carbon Dioxide 23 (21-32) mEq/L Anion Gap 15.8 H (5-15) BUN 11 (7-18) mg/dL Creatinine 0.9 (0.7-1.3) mg/dL Est Cr Clr Drug Dosing 134.46 mL/min Estimated GFR (MDRD) > 60 (>60) mL/min BUN/Creatinine Ratio 12.2 L (14-18) Glucose 117 H (70-99) mg/dL Lactic Acid (0.4-2.0) mmol/L Calcium 7.8 L (8.5-10.1) mg/dL Ferritin (26-388) ng/ml Total Bilirubin (0.2-1.0) mg/dL Direct Bilirubin (0.0-0.2) mg/dl Indirect Bilirubin AST (15-37) U/L ALT (16-63) U/L Alkaline Phosphatase (46-116) U/L Lactate Dehydrogenase (85-227) U/L C-Reactive Protein (<1.0) mg/dL Total Protein (6.4-8.2) g/dl Albumin (3.4-5.0) g/dl Globulin gm/dL Albumin/Globulin Ratio (1-2) Urine Color Yellow (Yellow) Urine Appearance Clear (Clear) Urine pH 6.5 (5.0-8.0) Ur Specific [place] 1.020 (1.005-1.030) Urine Protein 1+ H (Negative) Urine Glucose (UA) Negative (Negative) Urine Ketones Negative (Negative) Urine Occult Blood Negative (Negative) Urine Nitrite Negative (Negative) Urine Bilirubin Negative (Negative) Urine Urobilinogen 0.2 (0.2-1.0) Ur Leukocyte Esterase Negative (Negative) Urine RBC 0-5 (0-5) /hpf Urine WBC 0-5 (0-5) /hpf Ur Epithelial Cells 0-5 (0-5) /hpf Urine Bacteria Few (FEW) /hpf Urine Mucus Rare (FEW) /hpf Med Orders - Current: Current Medications Acetaminophen (Acetaminophen 325 Mg Tab) 650 mg PO Q4H PRN PRN Reason: Pain (Mild 1-3)/fever Albuterol (Albuterol 0.083% 2.5 Mg/3 Ml Neb Soln) 2.5 mg NEB Q2H PRN PRN Reason: Shortness Of Breath/wheezing Dexamethasone (Dexamethasone 10 Mg/Ml Sdv) 6 mg IVPUSH DAILY [facility] Stop: 10/26/20 09:01 Docusate Sodium (Docusate Sodium 100 Mg Cap) 100 mg PO BID PRN PRN Reason: Constipation Enoxaparin Sodium (Enoxaparin 40 Mg/0.4 Ml Syringe) 40 mg SUBCUT DAILY [facility] Remdesivir 100 mg/ Sodium (Chloride) 100 mls @ 100 mls/hr IV Q24H [facility] Stop: 10/20/20 17:59 Ondansetron HCl (Ondansetron 4 Mg Tab.Dis) 4 mg PO Q4H PRN PRN Reason: nausea, able to take PO Ondansetron HCl (Ondansetron 4 Mg/2 Ml Sdv) 4 mg IV Q4H PRN PRN Reason: Nausea/Vomiting Discontinued Medications Dexamethasone (Dexamethasone 4 Mg/Ml 5 Ml Mdv) 6 mg IV ONETIME ONE Stop: 10/16/20 17:18 Last Admin: 10/16/20 18:12 Dose: 6 mg Documented by: Remdesivir 200 mg/ Sodium (Chloride) 250 mls @ 250 mls/hr IV ONETIME ONE Stop: 10/16/20 18:16 Last Admin: 10/16/20 18:10 Dose: 250 mls/hr Documented by: - Exam General: Alert, No Acute Distress Lungs: Normal Respiratory Effort, Decreased Breath Sounds Cardiovascular: Regular Rate, Regular Rhythm, No Murmurs GI/Abdominal Exam: Normal Bowel Sounds, Soft, Non-Tender Extremities: Normal Inspection, No Pedal Edema Skin: Warm, Dry Psy/Mental Status: Normal Mood - Patient Data Lab Results Last 24 hrs: Laboratory Results - last 24 hr 10/16/20 10/16/2021 Range/Units 16:20 16:20 16:20 WBC 7.78 (4.23-9.07) K/mm3 RBC 5.13 (4.63-6.08) M/mm3 Hgb 13.8 (13.7-17.5) gm/dl Hct 42.0 (40.1-51.0) % MCV 81.9 D (79.0-92.2) fl MCH 26.9 (25.7-32.2) pg MCHC 32.9 (32.2-35.5) g/dl RDW Std Deviation 42.1 (35.1-43.9) fL Plt Count 269 (163-337) K/mm3 MPV 10.8 (9.4-12.3) fl Neut % (Auto) 87.3 H (34.0-67.9) % Lymph % (Auto) 7.3 L (21.8-53.1) % [place] % (Auto) 5.3 (5.3-12.2) % Eos % (Auto) 0 L (0.8-7.0) Baso % (Auto) 0.0 L (0.1-1.2) % Neut # (Auto) 6.79 H (1.78-5.38) K/mm3 Lymph # (Auto) 0.57 L (1.32-3.57) K/mm3 [place] # (Auto) 0.41 (0.30-0.82) K/mm3 Eos # (Auto) 0.00 L (0.04-0.54) K/mm3 Baso # (Auto) 0.00 L (0.01-0.08) K/mm3 Manual Slide Review PT 10.9 (9.7-12.0) SECONDS INR 1.02 APTT 28.5 (21.7-31.4) SECONDS D-Dimer, Quantitative 0.26 (0.19-0.50) mg/L Puncture Site ABG pH (7.35-7.45) ABG pCO2 (35.0-45.0) mmHg ABG pO2 (80.0-100.0) mmHg ABG HCO3 (22.0-26.0) meq/L ABG O2 Saturation (96.0-97.0) % ABG Base Excess (-2-2.0) Deion Test O2 Delivery Device Sodium (136-145) mEq/L Potassium (3.5-5.1) mEq/L Chloride (98-107) mEq/L Carbon Dioxide (21-32) mEq/L Anion Gap (5-15) BUN (7-18) mg/dL Creatinine (0.7-1.3) mg/dL Est Cr Clr Drug Dosing mL/min Estimated GFR (MDRD) (>60) mL/min BUN/Creatinine Ratio (14-18) Glucose (70-99) mg/dL Lactic Acid (0.4-2.0) mmol/L Calcium (8.5-10.1) mg/dL Ferritin 184 (26-388) ng/ml Total Bilirubin (0.2-1.0) mg/dL Direct Bilirubin (0.0-0.2) mg/dl Indirect Bilirubin AST (15-37) U/L ALT (16-63) U/L Alkaline Phosphatase (46-116) U/L Lactate Dehydrogenase (85-227) U/L C-Reactive Protein (<1.0) mg/dL Total Protein (6.4-8.2) g/dl Albumin (3.4-5.0) g/dl Globulin gm/dL Albumin/Globulin Ratio (1-2) Urine Color (Yellow) Urine Appearance (Clear) Urine pH (5.0-8.0) Ur Specific [place] (1.005-1.030) Urine Protein (Negative) Urine Glucose (UA) (Negative) Urine Ketones (Negative) Urine Occult Blood (Negative) Urine Nitrite (Negative) Urine Bilirubin (Negative) Urine Urobilinogen (0.2-1.0) Ur Leukocyte Esterase (Negative) Urine RBC (0-5) /hpf Urine WBC (0-5) /hpf Ur Epithelial Cells (0-5) /hpf Urine Bacteria (FEW) /hpf Urine Mucus (FEW) /hpf 10/16/20 10/16/20 10/16/20 Range/Units 16:20 16:20 16:21 WBC (4.23-9.07) K/mm3 RBC (4.63-6.08) M/mm3 Hgb (13.7-17.5) gm/dl Hct (40.1-51.0) % MCV (79.0-92.2) fl MCH (25.7-32.2) pg MCHC (32.2-35.5) g/dl RDW Std Deviation (35.1-43.9) fL Plt Count (163-337) K/mm3 MPV (9.4-12.3) fl Neut % (Auto) (34.0-67.9) % Lymph % (Auto) (21.8-53.1) % [place] % (Auto) (5.3-12.2) % Eos % (Auto) (0.8-7.0) Baso % (Auto) (0.1-1.2) % Neut # (Auto) (1.78-5.38) K/mm3 Lymph # (Auto) (1.32-3.57) K/mm3 [place] # (Auto) (0.30-0.82) K/mm3 Eos # (Auto) (0.04-0.54) K/mm3 Baso # (Auto) (0.01-0.08) K/mm3 Manual Slide Review PT (9.7-12.0) SECONDS INR APTT (21.7-31.4) SECONDS D-Dimer, Quantitative (0.19-0.50) mg/L Puncture Site Rt radial ABG pH 7.41 (7.35-7.45) ABG pCO2 30.8 L (35.0-45.0) mmHg ABG pO2 56.0 L (80.0-100.0) mmHg ABG HCO3 19.0 L (22.0-26.0) meq/L ABG O2 Saturation 86.5 L (96.0-97.0) % ABG Base Excess -4.1 L (-2-2.0) Deion Test Positive O2 Delivery Device Room air Sodium 138 (136-145) mEq/L Potassium 3.4 L (3.5-5.1) mEq/L Chloride 103 (98-107) mEq/L Carbon Dioxide 21 (21-32) mEq/L Anion Gap 17.4 H (5-15) BUN 15 (7-18) mg/dL Creatinine 1.2 (0.7-1.3) mg/dL Est Cr Clr Drug Dosing 100.85 mL/min Estimated GFR (MDRD) > 60 (>60) mL/min BUN/Creatinine Ratio 12.5 L (14-18) Glucose 111 H (70-99) mg/dL Lactic Acid 1.4 (0.4-2.0) mmol/L Calcium 7.7 L (8.5-10.1) mg/dL Ferritin (26-388) ng/ml Total Bilirubin 0.4 (0.2-1.0) mg/dL Direct Bilirubin 0.10 (0.0-0.2) mg/dl Indirect Bilirubin 0.30 AST 34 (15-37) U/L ALT 40 (16-63) U/L Alkaline Phosphatase 68 (46-116) U/L Lactate Dehydrogenase 326 H (85-227) U/L C-Reactive Protein 5.4 H* (<1.0) mg/dL Total Protein 7.8 (6.4-8.2) g/dl Albumin 3.3 L (3.4-5.0) g/dl Globulin 4.5 gm/dL Albumin/Globulin Ratio 0.7 L (1-2) Urine Color (Yellow) Urine Appearance (Clear) Urine pH (5.0-8.0) Ur Specific [place] (1.005-1.030) Urine Protein (Negative) Urine Glucose (UA) (Negative) Urine Ketones (Negative) Urine Occult Blood (Negative) Urine Nitrite (Negative) Urine Bilirubin (Negative) Urine Urobilinogen (0.2-1.0) Ur Leukocyte Esterase (Negative) Urine RBC (0-5) /hpf Urine WBC (0-5) /hpf Ur Epithelial Cells (0-5) /hpf Urine Bacteria (FEW) /hpf Urine Mucus (FEW) /hpf 10/16/20 10/17/20 10/17/20 Range/Units 22:14 05:55 05:55 WBC 5.40 (4.23-9.07) K/mm3 RBC 4.85 (4.63-6.08) M/mm3 Hgb 13.0 L (13.7-17.5) gm/dl Hct 40.2 (40.1-51.0) % MCV 82.9 (79.0-92.2) fl MCH 26.8 (25.7-32.2) pg MCHC 32.3 (32.2-35.5) g/dl RDW Std Deviation 43.5 (35.1-43.9) fL Plt Count 248 (163-337) K/mm3 MPV 10.4 (9.4-12.3) fl Neut % (Auto) 80.9 H (34.0-67.9) % Lymph % (Auto) 11.1 L (21.8-53.1) % [place] % (Auto) 7.6 (5.3-12.2) % Eos % (Auto) 0 L (0.8-7.0) Baso % (Auto) 0.0 L (0.1-1.2) % Neut # (Auto) 4.37 (1.78-5.38) K/mm3 Lymph # (Auto) 0.60 L (1.32-3.57) K/mm3 [place] # (Auto) 0.41 (0.30-0.82) K/mm3 Eos # (Auto) 0.00 L (0.04-0.54) K/mm3 Baso # (Auto) 0.00 L (0.01-0.08) K/mm3 Manual Slide Review Normal smear PT (9.7-12.0) SECONDS INR APTT (21.7-31.4) SECONDS D-Dimer, Quantitative (0.19-0.50) mg/L Puncture Site ABG pH (7.35-7.45) ABG pCO2 (35.0-45.0) mmHg ABG pO2 (80.0-100.0) mmHg ABG HCO3 (22.0-26.0) meq/L ABG O2 Saturation (96.0-97.0) % ABG Base Excess (-2-2.0) Deion Test O2 Delivery Device Sodium 141 (136-145) mEq/L Potassium 3.8 (3.5-5.1) mEq/L Chloride 106 (98-107) mEq/L Carbon Dioxide 23 (21-32) mEq/L Anion Gap 15.8 H (5-15) BUN 11 (7-18) mg/dL Creatinine 0.9 (0.7-1.3) mg/dL Est Cr Clr Drug Dosing 134.46 mL/min Estimated GFR (MDRD) > 60 (>60) mL/min BUN/Creatinine Ratio 12.2 L (14-18) Glucose 117 H (70-99) mg/dL Lactic Acid (0.4-2.0) mmol/L Calcium 7.8 L (8.5-10.1) mg/dL Ferritin (26-388) ng/ml Total Bilirubin (0.2-1.0) mg/dL Direct Bilirubin (0.0-0.2) mg/dl Indirect Bilirubin AST (15-37) U/L ALT (16-63) U/L Alkaline Phosphatase (46-116) U/L Lactate Dehydrogenase (85-227) U/L C-Reactive Protein (<1.0) mg/dL Total Protein (6.4-8.2) g/dl Albumin (3.4-5.0) g/dl Globulin gm/dL Albumin/Globulin Ratio (1-2) Urine Color Yellow (Yellow) Urine Appearance Clear (Clear) Urine pH 6.5 (5.0-8.0) Ur Specific [place] 1.020 (1.005-1.030) Urine Protein 1+ H (Negative) Urine Glucose (UA) Negative (Negative) Urine Ketones Negative (Negative) Urine Occult Blood Negative (Negative) Urine Nitrite Negative (Negative) Urine Bilirubin Negative (Negative) Urine Urobilinogen 0.2 (0.2-1.0) Ur Leukocyte Esterase Negative (Negative) Urine RBC 0-5 (0-5) /hpf Urine WBC 0-5 (0-5) /hpf Ur Epithelial Cells 0-5 (0-5) /hpf Urine Bacteria Few (FEW) /hpf Urine Mucus Rare (FEW) /hpf Result Diagrams: 10/17/20 05:55 10/17/20 05:55 Sepsis Event Note - Evaluation Sepsis Screening Result: No Definite Risk - Focused Exam Vital Signs: Vital Signs Temp Temp Pulse Pulse Resp BP BP 10/17/20 04:56 97.9 F 65 15 129/88 10/17/20 00:00 97.9 F 85 20 120/64 10/16/20 20:40 Pulse Ox Pulse Ox 10/17/20 04:56 95 10/17/20 00:00 94 L 10/16/20 20:40 95 - Problem List Review Problem List Initiated/Reviewed/Updated: Yes - My Orders Last 24 Hours: My Active Orders 10/16/20 16:56 Oxygen Therapy [RC] PRN Resuscitation Status Routine 10/16/20 Dinner Regular Diet [DIET] 10/16/20 17:26 Cardiac Monitoring [RC] CONTINUOUS Pulse Oximetry [RC] CONTINUOUS Up to Chair [RC] ASDIRECTED VTE/DVT Education [RC] QSHIFT Vital Signs [RC] Q4HR Acetaminophen [TylenoL] 650 mg PO Q4H PRN Albuterol [Proventil Neb Soln] 2.5 mg NEB Q2H PRN Docusate Sodium [Colace] 100 mg PO BID PRN Ondansetron [Zofran ODT] 4 mg PO Q4H PRN Ondansetron [Zofran] 4 mg IV Q4H PRN 10/16/20 17:28 RT Aerosol Therapy [RC] ASDIRECTED Respiratory Care Assess and Treatment [CONS] Routine 10/16/20 17:36 RT Incentive Spirometry [RC] Q1HWA 10/16/20 17:38 Patient Status [ADT] Routine 10/17/20 05:55 HEPATIC FUNCTION PANEL,HFP [CHEM] DAILY 10/17/20 09:00 Enoxaparin [Lovenox] 40 mg SUBCUT DAILY dexAMETHasone [Decadron] 6 mg IVPUSH DAILY 10/17/20 17:00 Remdesivir 100 mg Sodium Chloride 0.9% [Normal Saline] 100 ml IV Q24H 10/18/20 06:00 BASIC METABOLIC PANEL,BMP [CHEM] DAILY CBC WITH AUTO DIFF [HEME] DAILY 10/18/20 17:45 HEPATIC FUNCTION PANEL,HFP [CHEM] DAILY 10/19/20 06:00 BASIC METABOLIC PANEL,BMP [CHEM] DAILY CBC WITH AUTO DIFF [HEME] DAILY 10/19/20 17:45 HEPATIC FUNCTION PANEL,HFP [CHEM] DAILY 10/20/20 06:00 BASIC METABOLIC PANEL,BMP [CHEM] DAILY CBC WITH AUTO DIFF [HEME] DAILY 10/20/20 17:45 HEPATIC FUNCTION PANEL,HFP [CHEM] DAILY 10/21/20 06:00 BASIC METABOLIC PANEL,BMP [CHEM] DAILY CBC WITH AUTO DIFF [HEME] DAILY 10/22/20 06:00 BASIC METABOLIC PANEL,BMP [CHEM] DAILY CBC WITH AUTO DIFF [HEME] DAILY - Plan Plan:: 35-year-old male with a past medical history as listed above who presents to the [facility] emergency department with acute hypoxic respiratory failure secondary to acute COVID-19 pneumonitis. 1. Acute hypoxic respiratory failure Secondary to acute COVID-19 pneumonitis. Continue dexamethasone and remdesivir. Respiratory therapy consult with supplemental oxygen as necessary to titrate to goal of greater than 92%. If patient progresses to requiring more than 10 L of supplemental oxygen the patient will be given convalescent plasma and Tocilizumab. Incentive spirometry encouraged. Proning as instructed. Patient has been educated as to the importance of prone positioning. According to report by both he and the nurses he has been proning for a good portion of the night. 2. Acute COVID-19 pneumonitis. Plan as above. Continue supplemental zinc and vitamin C. Plan as above as per corticosteroids, remdesivir, convalescent plasma and Tocilizumab. Respiratory treatments as noted above. Bronchodilator inhalers as needed. D-dimer and ferritin levels within normal limits. Continue with DVT prophylaxis dosing of enoxaparin. 3. Anxiety and depression. Patient takes Zoloft and Ativan. We will continue. CODE STATUS: Full code. DVT prophylaxis with enoxaparin.
[2020-10-17] MEDS: Enoxaparin 40 MG/0.4 ML Syringe SUBCUT SCH (08:20)
[2020-10-17] MEDS: Dexamethasone 10 MG/ML SDV IVPUSH SCH (08:20)
--- NOTE | 2020-10-17 10:36 | CR ---
Chest: Portable view of the chest was obtained. Comparison: Prior chest CT study of 0 10/24/16 and chest x-ray of 02/28/15. Heart size and mediastinum are within normal limits. Lung markings are diffusely increased on both sides of the chest. These lung markings are an interval change from prior exam. Bony structures show nothing acute. Impression: 1. Diffuse increased lung markings on both sides of the chest. Please correlate if patient has diffuse signs of infection representing patchy areas of diffuse pneumonia. Please rule out Covid 19 disease. Diagnostic code #3
[2020-10-17] MEDS: REMDESIVIR 100 MG in Sodium Chloride 0.9% 100 ML IV SCH (17:31)
[2020-10-17] MEDS ORDERED: Loperamide 2 MG Cap PO PRN (17:46)
--- NOTE | 2020-10-18 08:47 | PCM.PN ---
- General Info Date of Service: 10/18/20 Admission Dx/Problem (Free Text): Admission Diagnosis/Problem Admission Diagnosis/Problem Respiratory failure with hypoxia, COVID-19 Pneumonitis Subjective Update: Patient seen and examined at bedside. No acute events overnight. No new nursing concerns. Yesterday during the day, he was able to wean to 2 L nasal cannula. Required 3 overnight. Mostly slept prone. Patient notes worsening shortness of breath with activity to the bathroom. Otherwise remains status quo. No pleurisy noted. Able to tolerate diet. No troubles with voiding. - Patient Data Vitals - Most Recent: Last Vital Signs Temp 98.1 F 10/18/20 07:34 Pulse 59 L 10/18/20 07:34 Resp 18 10/18/20 07:34 BP 131/75 10/18/20 07:34 Pulse Ox 89 L 10/18/20 07:34 Weight - Most Recent: 368 lb 1.6 oz I&O - Last 24 Hours: Intake & Output 10/17/20 10/18/20 10/18/20 22:59 06:59 14:59 Intake Total 1340 700 Output Total 850 Balance 1340 -150 Lab Results Last 24 Hours: Laboratory Results - last 24 hr 10/18/20 10/18/20 Range/Units 05:14 05:14 WBC 5.43 (4.23-9.07) K/mm3 RBC 4.85 (4.63-6.08) M/mm3 Hgb 13.0 L (13.7-17.5) gm/dl Hct 40.0 L (40.1-51.0) % MCV 82.5 (79.0-92.2) fl MCH 26.8 (25.7-32.2) pg MCHC 32.5 (32.2-35.5) g/dl RDW Std Deviation 42.5 (35.1-43.9) fL Plt Count 273 (163-337) K/mm3 MPV 10.9 (9.4-12.3) fl Neut % (Auto) 69.4 H (34.0-67.9) % Lymph % (Auto) 21.0 L (21.8-53.1) % [place] % (Auto) 8.8 (5.3-12.2) % Eos % (Auto) 0 L (0.8-7.0) Baso % (Auto) 0.2 (0.1-1.2) % Neut # (Auto) 3.77 (1.78-5.38) K/mm3 Lymph # (Auto) 1.14 L (1.32-3.57) K/mm3 [place] # (Auto) 0.48 (0.30-0.82) K/mm3 Eos # (Auto) 0.00 L (0.04-0.54) K/mm3 Baso # (Auto) 0.01 (0.01-0.08) K/mm3 Manual Slide Review Abnormal smear Sodium 141 (136-145) mEq/L Potassium 3.8 (3.5-5.1) mEq/L Chloride 106 (98-107) mEq/L Carbon Dioxide 24 (21-32) mEq/L Anion Gap 14.8 (5-15) BUN 12 (7-18) mg/dL Creatinine 0.9 (0.7-1.3) mg/dL Est Cr Clr Drug Dosing 134.46 mL/min Estimated GFR (MDRD) > 60 (>60) mL/min BUN/Creatinine Ratio 13.3 L (14-18) Glucose 105 H (70-99) mg/dL Calcium 8.0 L (8.5-10.1) mg/dL Shadi Results Last 24 Hours: Microbiology 10/16/20 16:32 Aerobic Blood Culture - Preliminary Blood - Venous NO GROWTH AFTER 1 DAY Anaerobic Blood Culture - Preliminary NO GROWTH AFTER 1 DAY 10/16/20 16:20 Aerobic Blood Culture - Preliminary Blood - Venous - Lab Draw NO GROWTH AFTER 1 DAY Anaerobic Blood Culture - Preliminary NO GROWTH AFTER 1 DAY Med Orders - Current: Current Medications Acetaminophen (Acetaminophen 325 Mg Tab) 650 mg PO Q4H PRN PRN Reason: Pain (Mild 1-3)/fever Albuterol (Albuterol 0.083% 2.5 Mg/3 Ml Neb Soln) 2.5 mg NEB Q2H PRN PRN Reason: Shortness Of Breath/wheezing Dexamethasone (Dexamethasone 10 Mg/Ml Sdv) 6 mg IVPUSH DAILY MONET Stop: 10/25/20 09:01 Last Admin: 10/17/20 08:20 Dose: 6 mg Documented by: Docusate Sodium (Docusate Sodium 100 Mg Cap) 100 mg PO BID PRN PRN Reason: Constipation Enoxaparin Sodium (Enoxaparin 40 Mg/0.4 Ml Syringe) 40 mg SUBCUT DAILY MONET Last Admin: 10/17/20 08:20 Dose: 40 mg Documented by: Remdesivir 100 mg/ Sodium (Chloride) 100 mls @ 100 mls/hr IV Q24H MONET Stop: 10/20/20 17:59 Last Admin: 10/17/20 17:31 Dose: 100 mls/hr Documented by: Loperamide HCl (Loperamide 2 Mg Cap) 2 mg PO Q6H PRN PRN Reason: Diarrhea Last Admin: 10/17/20 17:53 Dose: 2 mg Documented by: Ondansetron HCl (Ondansetron 4 Mg Tab.Dis) 4 mg PO Q4H PRN PRN Reason: nausea, able to take PO Ondansetron HCl (Ondansetron 4 Mg/2 Ml Sdv) 4 mg IV Q4H PRN PRN Reason: Nausea/Vomiting Discontinued Medications Dexamethasone (Dexamethasone 4 Mg/Ml 5 Ml Mdv) 6 mg IV ONETIME ONE Stop: 10/16/20 17:18 Last Admin: 10/16/20 18:12 Dose: 6 mg Documented by: Remdesivir 200 mg/ Sodium (Chloride) 250 mls @ 250 mls/hr IV ONETIME ONE Stop: 10/16/20 18:16 Last Admin: 10/16/20 18:10 Dose: 250 mls/hr Documented by: - Exam General: Alert Lungs: Clear to Auscultation, Normal Respiratory Effort, Other (Some tubular sounds noted at the bases) GI/Abdominal Exam: Normal Bowel Sounds, Soft, Non-Tender Extremities: Normal Inspection, No Pedal Edema Skin: Warm, Dry Psy/Mental Status: Normal Mood - Patient Data Lab Results Last 24 hrs: Laboratory Results - last 24 hr 10/18/20 10/18/20 Range/Units 05:14 05:14 WBC 5.43 (4.23-9.07) K/mm3 RBC 4.85 (4.63-6.08) M/mm3 Hgb 13.0 L (13.7-17.5) gm/dl Hct 40.0 L (40.1-51.0) % MCV 82.5 (79.0-92.2) fl MCH 26.8 (25.7-32.2) pg MCHC 32.5 (32.2-35.5) g/dl RDW Std Deviation 42.5 (35.1-43.9) fL Plt Count 273 (163-337) K/mm3 MPV 10.9 (9.4-12.3) fl Neut % (Auto) 69.4 H (34.0-67.9) % Lymph % (Auto) 21.0 L (21.8-53.1) % [place] % (Auto) 8.8 (5.3-12.2) % Eos % (Auto) 0 L (0.8-7.0) Baso % (Auto) 0.2 (0.1-1.2) % Neut # (Auto) 3.77 (1.78-5.38) K/mm3 Lymph # (Auto) 1.14 L (1.32-3.57) K/mm3 [place] # (Auto) 0.48 (0.30-0.82) K/mm3 Eos # (Auto) 0.00 L (0.04-0.54) K/mm3 Baso # (Auto) 0.01 (0.01-0.08) K/mm3 Manual Slide Review Abnormal smear Sodium 141 (136-145) mEq/L Potassium 3.8 (3.5-5.1) mEq/L Chloride 106 (98-107) mEq/L Carbon Dioxide 24 (21-32) mEq/L Anion Gap 14.8 (5-15) BUN 12 (7-18) mg/dL Creatinine 0.9 (0.7-1.3) mg/dL Est Cr Clr Drug Dosing 134.46 mL/min Estimated GFR (MDRD) > 60 (>60) mL/min BUN/Creatinine Ratio 13.3 L (14-18) Glucose 105 H (70-99) mg/dL Calcium 8.0 L (8.5-10.1) mg/dL Result Diagrams: 10/18/20 05:14 10/18/20 05:14 Shadi Results Last 24 hrs: Microbiology 10/16/20 16:32 Aerobic Blood Culture - Preliminary Blood - Venous NO GROWTH AFTER 1 DAY Anaerobic Blood Culture - Preliminary NO GROWTH AFTER 1 DAY 10/16/20 16:20 Aerobic Blood Culture - Preliminary Blood - Venous - Lab Draw NO GROWTH AFTER 1 DAY Anaerobic Blood Culture - Preliminary NO GROWTH AFTER 1 DAY Sepsis Event Note - Evaluation Sepsis Screening Result: No Definite Risk - Focused Exam Vital Signs: Vital Signs Temp Pulse Pulse Resp BP Pulse Ox 10/18/20 07:34 98.1 F 59 L 18 131/75 89 L 10/18/20 04:43 97.9 F 67 15 128/72 92 L 10/18/20 00:00 78 18 93 L 10/17/20 21:30 92 L 10/17/20 21:19 98.1 F 64 18 132/69 90 L 10/17/20 21:14 85 L - Problem List Review Problem List Initiated/Reviewed/Updated: Yes - My Orders Last 24 Hours: My Active Orders 10/17/20 09:00 Enoxaparin [Lovenox] 40 mg SUBCUT DAILY dexAMETHasone [Decadron] 6 mg IVPUSH DAILY 10/17/20 17:00 Remdesivir 100 mg Sodium Chloride 0.9% [Normal Saline] 100 ml IV Q24H 10/17/20 17:46 Loperamide [Imodium] 2 mg PO Q6H PRN 10/18/20 17:45 HEPATIC FUNCTION PANEL,HFP [CHEM] DAILY 10/19/20 06:00 BASIC METABOLIC PANEL,BMP [CHEM] DAILY CBC WITH AUTO DIFF [HEME] DAILY 10/19/20 17:45 HEPATIC FUNCTION PANEL,HFP [CHEM] DAILY 10/20/20 06:00 BASIC METABOLIC PANEL,BMP [CHEM] DAILY CBC WITH AUTO DIFF [HEME] DAILY 10/20/20 17:45 HEPATIC FUNCTION PANEL,HFP [CHEM] DAILY 10/21/20 06:00 BASIC METABOLIC PANEL,BMP [CHEM] DAILY CBC WITH AUTO DIFF [HEME] DAILY 10/22/20 06:00 BASIC METABOLIC PANEL,BMP [CHEM] DAILY CBC WITH AUTO DIFF [HEME] DAILY - Plan Plan:: 35-year-old male who presented to the [facility] emergency department with acute hypoxic respiratory failure secondary to acute COVID-19 pneumonitis. 1. Acute hypoxic respiratory failure Secondary to acute COVID-19 pneumonitis. Continue dexamethasone and remdesivir for full course in the hospital. Respiratory therapy consult with supplemental oxygen as necessary to titrate to goal of greater than 92%. Anticipate temporary home O2. If patient progresses to requiring more than 10 L of supplemental oxygen the patient will be given convalescent plasma and Tocilizumab. Incentive spirometry encouraged. Proning as instructed. Patient has been educated as to the importance of prone positioning. According to report by both he and the nurses he has been proning for a good portion of the night for the past 2 nights. 2. Acute COVID-19 pneumonitis. Plan as above. Continue supplemental zinc and vitamin C. Plan as above as per corticosteroids, remdesivir, convalescent plasma and Tocilizumab. Respiratory treatments as noted above. Bronchodilator inhalers as needed. D-dimer and ferritin levels within normal limits. Continue with DVT prophylaxis dosing of enoxaparin. 3. Anxiety and depression. Patient takes Zoloft and Ativan. We will continue. CODE STATUS: Full code. DVT prophylaxis with enoxaparin.
[2020-10-18] MEDS: Enoxaparin 40 MG/0.4 ML Syringe SUBCUT SCH (09:34)
[2020-10-18] MEDS: Ascorbic Acid 500 MG Tab PO SCH ×2 (09:35→21:25)
[2020-10-18] MEDS: Zinc Sulfate 220 MG Cap PO SCH (09:35)
[2020-10-18] MEDS: Dexamethasone 10 MG/ML SDV IVPUSH SCH (09:38)
[2020-10-18] MEDS ORDERED: Sertraline 50 MG Tab PO STA (13:50)
[2020-10-18] MEDS: LORazepam 0.5 MG Tab PO PRN (13:58)
[2020-10-18] MEDS: REMDESIVIR 100 MG in Sodium Chloride 0.9% 100 ML IV SCH (16:06)
[2020-10-19] MEDS: Pantoprazole 40 MG Tab.CR PO SCH (06:27)
--- NOTE | 2020-10-19 08:13 | PCM.PN ---
- General Info Date of Service: 10/19/20 Admission Dx/Problem (Free Text): Admission Diagnosis/Problem Admission Diagnosis/Problem Respiratory failure with hypoxia, COVID-19 Pneumonitis Subjective Update: No acute events overnight. No new nursing concerns. Weaned down to 1 to 2 L of supplemental oxygen via nasal cannula. Mostly proning at night. Patient states that he feels better. Occasional cough; no sputum production. No fevers. - Patient Data Vitals - Most Recent: Last Vital Signs Temp 97.5 F 10/19/20 07:31 Pulse 54 L 10/19/20 05:25 Resp 24 H 10/19/20 07:31 BP 101/55 L 10/19/20 07:31 Pulse Ox 93 L 10/19/20 06:27 Weight - Most Recent: 367 lb 14.4 oz I&O - Last 24 Hours: Intake & Output 10/18/20 10/19/20 10/19/20 22:59 06:59 14:59 Intake Total 2240 1900 Balance 2240 1900 Lab Results Last 24 Hours: Laboratory Results - last 24 hr 10/18/20 10/19/20 10/19/20 Range/Units 17:48 05:25 05:25 WBC 4.19 L (4.23-9.07) K/mm3 RBC 4.94 (4.63-6.08) M/mm3 Hgb 13.4 L (13.7-17.5) gm/dl Hct 40.5 (40.1-51.0) % MCV 82.0 (79.0-92.2) fl MCH 27.1 (25.7-32.2) pg MCHC 33.1 (32.2-35.5) g/dl RDW Std Deviation 41.9 (35.1-43.9) fL Plt Count 315 (163-337) K/mm3 MPV 10.7 (9.4-12.3) fl Neut % (Auto) 58.7 (34.0-67.9) % Lymph % (Auto) 28.2 (21.8-53.1) % [place] % (Auto) 11.7 (5.3-12.2) % Eos % (Auto) 0.2 L (0.8-7.0) Baso % (Auto) 0.5 (0.1-1.2) % Neut # (Auto) 2.46 (1.78-5.38) K/mm3 Lymph # (Auto) 1.18 L (1.32-3.57) K/mm3 [place] # (Auto) 0.49 (0.30-0.82) K/mm3 Eos # (Auto) 0.01 L (0.04-0.54) K/mm3 Baso # (Auto) 0.02 (0.01-0.08) K/mm3 Manual Slide Review Abnormal smear Sodium 143 (136-145) mEq/L Potassium 4.0 (3.5-5.1) mEq/L Chloride 109 H (98-107) mEq/L Carbon Dioxide 22 (21-32) mEq/L Anion Gap 16.0 H (5-15) BUN 14 (7-18) mg/dL Creatinine 0.8 (0.7-1.3) mg/dL Est Cr Clr Drug Dosing 151.27 mL/min Estimated GFR (MDRD) > 60 (>60) mL/min BUN/Creatinine Ratio 17.5 (14-18) Glucose 105 H (70-99) mg/dL Calcium 8.2 L (8.5-10.1) mg/dL Total Bilirubin 0.4 (0.2-1.0) mg/dL Direct Bilirubin 0.20 (0.0-0.2) mg/dl Indirect Bilirubin 0.20 AST 52 H (15-37) U/L ALT 60 (16-63) U/L Alkaline Phosphatase 61 (46-116) U/L Total Protein 7.2 (6.4-8.2) g/dl Albumin 2.7 L (3.4-5.0) g/dl Globulin 4.5 gm/dL Albumin/Globulin Ratio 0.6 L (1-2) Shadi Results Last 24 Hours: Microbiology 10/16/20 16:32 Aerobic Blood Culture - Preliminary Blood - Venous NO GROWTH AFTER 2 DAYS Anaerobic Blood Culture - Preliminary NO GROWTH AFTER 2 DAYS 10/16/20 16:20 Aerobic Blood Culture - Preliminary Blood - Venous - Lab Draw NO GROWTH AFTER 2 DAYS Anaerobic Blood Culture - Preliminary NO GROWTH AFTER 2 DAYS Med Orders - Current: Current Medications Acetaminophen (Acetaminophen 325 Mg Tab) 650 mg PO Q4H PRN PRN Reason: Pain (Mild 1-3)/fever Albuterol (Albuterol 0.083% 2.5 Mg/3 Ml Neb Soln) 2.5 mg NEB Q2H PRN PRN Reason: Shortness Of Breath/wheezing Ascorbic Acid (Ascorbic Acid 500 Mg Tab) 500 mg PO BID [facility] Last Admin: 10/18/20 21:25 Dose: 500 mg Documented by: Cholecalciferol (Cholecalciferol (Vitamin D3) 5,000 Unit Cap) 5,000 unit PO DAILY [facility] Dexamethasone (Dexamethasone 4 Mg Tab) 6 mg PO DAILY [facility] Stop: 10/25/20 09:01 Docusate Sodium (Docusate Sodium 100 Mg Cap) 100 mg PO BID PRN PRN Reason: Constipation Enoxaparin Sodium (Enoxaparin 40 Mg/0.4 Ml Syringe) 40 mg SUBCUT DAILY [facility] Last Admin: 10/18/20 09:34 Dose: 40 mg Documented by: Remdesivir 100 mg/ Sodium (Chloride) 100 mls @ 100 mls/hr IV Q24H [facility] Stop: 10/20/20 17:59 Last Admin: 10/18/20 16:06 Dose: 100 mls/hr Documented by: Loperamide HCl (Loperamide 2 Mg Cap) 2 mg PO Q6H PRN PRN Reason: Diarrhea Last Admin: 10/17/20 17:53 Dose: 2 mg Documented by: Lorazepam (Lorazepam 0.5 Mg Tab) 0.5 mg PO DAILY PRN PRN Reason: Anxiety Last Admin: 10/18/20 13:58 Dose: 0.5 mg Documented by: Ondansetron HCl (Ondansetron 4 Mg Tab.Dis) 4 mg PO Q4H PRN PRN Reason: nausea, able to take PO Ondansetron HCl (Ondansetron 4 Mg/2 Ml Sdv) 4 mg IV Q4H PRN PRN Reason: Nausea/Vomiting Pantoprazole Sodium (Pantoprazole 40 Mg Tab.Cr) 40 mg PO DAILY@0700 [facility] Last Admin: 10/19/20 06:27 Dose: 40 mg Documented by: Sertraline HCl (Sertraline 50 Mg Tab) 100 mg PO DAILY [facility] Zinc Sulfate (Zinc Sulfate 220 Mg Cap) 220 mg PO DAILY [facility] Last Admin: 10/18/20 09:35 Dose: 220 mg Documented by: Discontinued Medications Dexamethasone (Dexamethasone 4 Mg/Ml 5 Ml Mdv) 6 mg IV ONETIME ONE Stop: 10/16/20 17:18 Last Admin: 10/16/20 18:12 Dose: 6 mg Documented by: Dexamethasone (Dexamethasone 10 Mg/Ml Sdv) 6 mg IVPUSH DAILY [facility] Stop: 10/25/20 09:01 Last Admin: 10/18/20 09:38 Dose: 6 mg Documented by: Remdesivir 200 mg/ Sodium (Chloride) 250 mls @ 250 mls/hr IV ONETIME ONE Stop: 10/16/20 18:16 Last Admin: 10/16/20 18:10 Dose: 250 mls/hr Documented by: Sertraline HCl (Sertraline 50 Mg Tab) 100 mg PO NOW STA Stop: 10/18/20 13:51 Last Admin: 10/18/20 13:58 Dose: 100 mg Documented by: - Exam Quality Assessment: Supplemental Oxygen, DVT Prophylaxis General: Alert Lungs: Decreased Breath Sounds Cardiovascular: Regular Rate, Regular Rhythm GI/Abdominal Exam: Normal Bowel Sounds, Soft, Non-Tender Extremities: Normal Inspection, No Pedal Edema Skin: Warm, Dry - Patient Data Lab Results Last 24 hrs: Laboratory Results - last 24 hr 10/18/20 10/19/20 10/19/20 Range/Units 17:48 05:25 05:25 WBC 4.19 L (4.23-9.07) K/mm3 RBC 4.94 (4.63-6.08) M/mm3 Hgb 13.4 L (13.7-17.5) gm/dl Hct 40.5 (40.1-51.0) % MCV 82.0 (79.0-92.2) fl MCH 27.1 (25.7-32.2) pg MCHC 33.1 (32.2-35.5) g/dl RDW Std Deviation 41.9 (35.1-43.9) fL Plt Count 315 (163-337) K/mm3 MPV 10.7 (9.4-12.3) fl Neut % (Auto) 58.7 (34.0-67.9) % Lymph % (Auto) 28.2 (21.8-53.1) % [place] % (Auto) 11.7 (5.3-12.2) % Eos % (Auto) 0.2 L (0.8-7.0) Baso % (Auto) 0.5 (0.1-1.2) % Neut # (Auto) 2.46 (1.78-5.38) K/mm3 Lymph # (Auto) 1.18 L (1.32-3.57) K/mm3 [place] # (Auto) 0.49 (0.30-0.82) K/mm3 Eos # (Auto) 0.01 L (0.04-0.54) K/mm3 Baso # (Auto) 0.02 (0.01-0.08) K/mm3 Manual Slide Review Abnormal smear Sodium 143 (136-145) mEq/L Potassium 4.0 (3.5-5.1) mEq/L Chloride 109 H (98-107) mEq/L Carbon Dioxide 22 (21-32) mEq/L Anion Gap 16.0 H (5-15) BUN 14 (7-18) mg/dL Creatinine 0.8 (0.7-1.3) mg/dL Est Cr Clr Drug Dosing 151.27 mL/min Estimated GFR (MDRD) > 60 (>60) mL/min BUN/Creatinine Ratio 17.5 (14-18) Glucose 105 H (70-99) mg/dL Calcium 8.2 L (8.5-10.1) mg/dL Total Bilirubin 0.4 (0.2-1.0) mg/dL Direct Bilirubin 0.20 (0.0-0.2) mg/dl Indirect Bilirubin 0.20 AST 52 H (15-37) U/L ALT 60 (16-63) U/L Alkaline Phosphatase 61 (46-116) U/L Total Protein 7.2 (6.4-8.2) g/dl Albumin 2.7 L (3.4-5.0) g/dl Globulin 4.5 gm/dL Albumin/Globulin Ratio 0.6 L (1-2) Result Diagrams: 10/19/20 05:25 10/19/20 05:25 Shadi Results Last 24 hrs: Microbiology 10/16/20 16:32 Aerobic Blood Culture - Preliminary Blood - Venous NO GROWTH AFTER 2 DAYS Anaerobic Blood Culture - Preliminary NO GROWTH AFTER 2 DAYS 10/16/20 16:20 Aerobic Blood Culture - Preliminary Blood - Venous - Lab Draw NO GROWTH AFTER 2 DAYS Anaerobic Blood Culture - Preliminary NO GROWTH AFTER 2 DAYS Sepsis Event Note - Evaluation Sepsis Screening Result: No Definite Risk - Focused Exam Vital Signs: Vital Signs Temp Pulse Resp BP Pulse Ox Pulse Ox Pulse Ox 10/19/20 07:31 97.5 F 24 H 101/55 L 10/19/20 06:27 93 L 10/19/20 05:25 97.7 F 54 L 18 113/67 10/19/20 05:24 94 L 10/18/20 23:25 97.5 F 67 16 140/88 10/18/20 23:00 91 L 10/18/20 21:28 98.1 F 73 19 117/59 L 10/18/20 20:32 94 L - Problem List Review Problem List Initiated/Reviewed/Updated: Yes - My Orders Last 24 Hours: My Active Orders 10/18/20 09:00 Ascorbic Acid [Vitamin C] 500 mg PO BID Zinc Sulfate [Zincate] 220 mg PO DAILY 10/18/20 10:25 LORazepam [Ativan] 0.5 mg PO DAILY PRN 10/19/20 07:00 Pantoprazole [ProTONIX] 40 mg PO DAILY@0700 10/19/20 09:00 Cholecalciferol (Vitamin D3) [Vitamin D3] 5,000 unit PO DAILY Sertraline [Zoloft] 100 mg PO DAILY dexAMETHasone 6 mg PO DAILY 10/19/20 17:45 HEPATIC FUNCTION PANEL,HFP [CHEM] DAILY 10/20/20 06:00 BASIC METABOLIC PANEL,BMP [CHEM] DAILY CBC WITH AUTO DIFF [HEME] DAILY 10/20/20 17:45 HEPATIC FUNCTION PANEL,HFP [CHEM] DAILY 10/21/20 06:00 BASIC METABOLIC PANEL,BMP [CHEM] DAILY CBC WITH AUTO DIFF [HEME] DAILY 10/22/20 06:00 BASIC METABOLIC PANEL,BMP [CHEM] DAILY CBC WITH AUTO DIFF [HEME] DAILY - Plan Plan:: 35-year-old male who presented to the [facility] emergency department with acute hypoxic respiratory failure secondary to acute COVID-19 pneumonitis. 1. Acute hypoxic respiratory failure Secondary to acute COVID-19 pneumonitis. Continue dexamethasone and remdesivir for full course in the hospital. Today is day 4 of treatment. Dexamethasone switched to p.o. yesterday. Respiratory therapy consult with supplemental oxygen as necessary to titrate to goal of greater than 92%. If patient progresses to requiring more than 10 L of supplemental oxygen the patient will be given convalescent plasma and Tocilizumab. Incentive spirometry encouraged. Proning as instructed. 2. Acute COVID-19 pneumonitis. Plan as above. Continue supplemental zinc and vitamin C. Plan as above as per corticosteroids, remdesivir, convalescent plasma and Tocilizumab. Respiratory treatments as noted above. Bronchodilator inhalers as needed. D-dimer and ferritin levels within normal limits. Continue with DVT prophylaxis dosing of enoxaparin. 3. Anxiety and depression. Patient takes Zoloft and Ativan. We will continue. CODE STATUS: Full code. DVT prophylaxis with enoxaparin.
[2020-10-19] MEDS: Zinc Sulfate 220 MG Cap PO SCH (08:39)
[2020-10-19] MEDS: Dexamethasone 4 MG Tab PO SCH (08:40)
[2020-10-19] MEDS: Sertraline 50 MG Tab PO SCH (08:40)
[2020-10-19] MEDS: Cholecalciferol (Vitamin D3) 5,000 UNIT Cap PO SCH (08:40)
[2020-10-19] MEDS: Enoxaparin 40 MG/0.4 ML Syringe SUBCUT SCH (08:41)
[2020-10-19] MEDS: Ascorbic Acid 500 MG Tab PO SCH ×2 (08:41→21:49)
[2020-10-19] MEDS: REMDESIVIR 100 MG in Sodium Chloride 0.9% 100 ML IV SCH (17:55)
[2020-10-20] MEDS: Pantoprazole 40 MG Tab.CR PO SCH (06:17)
[2020-10-20] MEDS: Cholecalciferol (Vitamin D3) 5,000 UNIT Cap PO SCH (08:36)
[2020-10-20] MEDS: Ascorbic Acid 500 MG Tab PO SCH (08:36)
[2020-10-20] MEDS: Sertraline 50 MG Tab PO SCH (08:36)
[2020-10-20] MEDS: Dexamethasone 4 MG Tab PO SCH (08:37)
[2020-10-20] MEDS: Enoxaparin 40 MG/0.4 ML Syringe SUBCUT SCH (08:37)
[2020-10-20] MEDS: Zinc Sulfate 220 MG Cap PO SCH (08:37)
--- NOTE | 2020-10-20 09:09 | PCM.DCSUM1 ---
Discharge Summary - Hospital Course Free Text/Narrative:: 35-year-old male who presented to the [facility] emergency department with acute hypoxic respiratory failure secondary to acute COVID-19 pneumonitis. 1. Acute hypoxic respiratory failure Secondary to acute COVID-19 pneumonitis. Received a full course of dexamethasone and remdesivir in the hospital. Patient's O2 requirement never was above 3 L/min. Has continued to saturate well at rest and with ambulation with such a minimal requirement. Respiratory therapy consult with supplemental oxygen as necessary to titrate to goal of greater than 92%. As the patient's condition was not moderate to severe, transfusion with convalescent plasma or Tocilizumab was not entertained. Respiratory therapy has arranged for home oxygen to continue until otherwise discontinued by medical professional after outpatient evaluation. 2. Acute COVID-19 pneumonitis. Plan as above. Continue supplemental zinc and vitamin C. Plan as above as per corticosteroids, remdesivir, convalescent plasma and Tocilizumab. Bronchodilator inhalers as needed. D-dimer and ferritin levels were within normal limits. DVT prophylaxis enoxaparin was administered throughout admission. 3. Anxiety and depression. Continued on home medications including Zoloft and Ativan. CODE STATUS: Full code. DVT prophylaxis with enoxaparin. HPI Initial Comments: Patient is a 35-year-old male with no significant past medical history other than depression and anxiety who presents to the [facility] emergency department with 7 days of cold-like symptoms including rhinorrhea, cough (nonproductive), general muscle and joint aches and pains, nausea/vomiting transiently, and occasional diarrhea. Has had generalized abdominal cramps and discomfort without any specific radiation pattern. No black or blood noted in the vomitus or with bowel movements. No recent sick contacts. No recent travel. Within the past 24 to 36 hours he has started to notice shortness of breath with exertion, and now worse even at rest. This was the main symptom that worried him to most in order to come to the emergency department. He had EMS summoned to the house. He lives alone. He was found to be hypoxic in the field. Patient was placed on supplemental oxygen. He has been requiring 2 to 4 L to stay above 92%. He has been tachypneic and in mild respiratory distress. The patient denies fever. Claims poor p.o. intake for the past day. Patient positive for acute COVID-19. Due to hypoxia patient was referred to the internal medicine service for ongoing treatment. CODE STATUS: Full code. 14 point review of systems was reviewed with the patient entirely and only pertinent for the above information. - Related Data Allergies/Adverse Reactions: Allergies Allergy/AdvReac Type Severity Reaction Status Date / Time No Known Allergies Allergy Verified 03/02/19 13:58 Home Medications: Home Meds Amoxicillin/Potassium Clav [Augmentin 500-125 Tablet] 1 each PO BID #16 tablet 03/02/19 [Rx] Hydrocort/Neomycin/Polymyxin B [Asxeqprn-Irkvvjgvc-ZK Otic Susp] 10 ml .XX ASDIRECTED #1 bottle 03/02/19 [Rx] Omeprazole 20 mg PO DAILY 03/02/19 [History] PARoxetine HCl [Paxil] 20 mg PO DAILY 03/02/19 [History] oxyCODONE HCl/Acetaminophen [Percocet 10-325 mg Tablet] 1 each PO Q4H PRN #14 tablet 03/02/19 [Rx] Past Medical History Cardiovascular History: Reports: Hypertension Gastrointestinal History: Reports: GERD Other Musculoskeletal History: Right humerus fracture Psychiatric History: Reports: Anxiety, Depression - Infectious Disease History Infectious Disease History: Reports: Novel Coronavirus - Past Surgical History HEENT Surgical History: Reports: Tonsillectomy Other Musculoskeletal Surgeries/Procedures:: ORIF of right humerus Social & Family History - Family History Family Medical History: No Pertinent Family History - Tobacco Use Tobacco Use Status *Q: Never Tobacco User Second Hand Smoke Exposure: No - Caffeine Use Caffeine Use: Reports: Coffee, Soda - Recreational Drug Use Recreational Drug Use: No - Living Situation & Occupation Living situation: Reports: Single Occupation: Unemployed H&P Review of Systems - Review of Systems: Review Of Systems: Comprehensive ROS is negative, except as noted in HPI. Exam - Exam Exam: See Below - Vital Signs Vital Signs: Last Vital Signs Temp 98.0 F 10/16/20 15:43 Pulse 102 H 10/16/20 15:43 Resp 25 H 10/16/20 15:43 BP 108/68 10/16/20 15:43 Pulse Ox 92 L 10/16/20 15:43 Weight: 380 lb - Exam Quality Assessment: Supplemental Oxygen General: Alert, Cooperative, Mild Distress HEENT: Conjunctiva Clear, Nares Patent, Pupils Equal Neck: Supple, Trachea Midline Lungs: Decreased Breath Sounds, Rales (right middle and lower acosta) Cardiovascular: Tachycardia GI/Abdominal Exam: Normal Bowel Sounds, Soft, Non-Tender, No Distention Extremities: Normal Inspection, No Pedal Edema Skin: Other (multiple tattoos) Neurological: Cranial Nerves Intact Neuro Extensive - Motor, Sensory, Reflexes: CN II-XII Intact Psychiatric: Anxious - Discharge Data Discharge Date: 10/20/20 Discharge Disposition: Home, Self-Care 01 Condition: Good - Referral to Home Health Primary Care Physician: PCP None - Patient Summary/Data Consults: Consultations 10/16/20 17:28 Respiratory Care Assess and Treatment [CONS] Routine - Patient Instructions Diet: Usual Diet as Tolerated Activity: As Tolerated Driving: May Drive Today Other/Special Instructions: Continue wearing oxygen at 2 L/min at all times, especially when up and ambulating. Continue medications as instructed at time of discharge. Would continue to advise taking vitamin C and zinc. Follow-up with primary care physician within 1 to 2 weeks. Refrain from strenuous activity. Continue wearing oxygen until otherwise discontinued by a medical professional. If you experience any signs or symptoms that warranted this admission please do not hesitate to call your primary care physician or present to an emergent care setting for an immediate evaluation - Discharge Plan *PRESCRIPTION DRUG MONITORING PROGRAM REVIEWED*: Not Applicable *COPY OF PRESCRIPTION DRUG MONITORING REPORT IN PATIENT CHUCK: Not Applicable Prescriptions/Med Rec: Ascorbic Acid [Vitamin C] 500 mg PO BID #60 tablet Zinc Sulfate [Zincate] 220 mg PO DAILY #30 cap Home Medications: Home Meds Omeprazole 20 mg PO DAILY 03/02/19 [History] LORazepam [Ativan] 0.5 mg PO DAILY PRN 10/16/20 [History] Sertraline [Zoloft] 100 mg PO DAILY 10/16/20 [History] Cholecalciferol (Vitamin D3) [Vitamin D3] 5,000 unit PO DAILY 10/18/20 [History] Ascorbic Acid [Vitamin C] 500 mg PO BID #60 tablet 10/20/20 [Rx] Zinc Sulfate [Zincate] 220 mg PO DAILY #30 cap 10/20/20 [Rx] Oxygen Therapy Mode: Nasal Cannula Oxygen Flow Rate (L/min): 2 Maintain SpO2% greater than: 92 Patient Handouts: COVID-19 Frequently Asked Questions, COVID-19: How to Protect Yourself and Others - CDC, Sepsis, Self Care, Adult Forms: ED Department Discharge Referrals: PCP,None [Primary Care Provider] - (Follow up with [facility] who you normally see, phone # is [phone]) - Discharge Summary/Plan Comment DC Time >30 min.: Yes - General Info Date of Service: 10/20/20 Admission Dx/Problem (Free Text: Admission Diagnosis/Problem Admission Diagnosis/Problem Respiratory failure with hypoxia, COVID-19 Pneumonitis Subjective Update: No acute events overnight. No new nursing concerns. Patient proned again for the majority of the night. Patient states that he feels good. Is hoping to go home today. Understands that he requires oxygen and he will continue to wear it as needed. - Patient Data Vitals - Most Recent: Last Vital Signs Temp 97.7 F 10/20/20 03:35 Pulse 53 L 10/20/20 08:05 Resp 20 10/20/20 08:05 BP 118/60 10/20/20 08:05 Pulse Ox 91 L 10/20/20 08:05 Weight - Most Recent: 363 lb 4.8 oz I&O - Last 24 hours: Intake & Output 10/19/20 10/20/20 10/20/20 22:59 06:59 14:59 Intake Total 1240 800 Balance 1240 800 Lab Results - Last 24 hrs: Laboratory Results - last 24 hr 10/19/20 10/20/20 10/20/20 Range/Units 18:00 04:57 04:57 WBC 5.68 (4.23-9.07) K/mm3 RBC 5.26 (4.63-6.08) M/mm3 Hgb 14.0 (13.7-17.5) gm/dl Hct 42.8 (40.1-51.0) % MCV 81.4 (79.0-92.2) fl MCH 26.6 (25.7-32.2) pg MCHC 32.7 (32.2-35.5) g/dl RDW Std Deviation 41.5 (35.1-43.9) fL Plt Count 374 H (163-337) K/mm3 MPV 10.6 (9.4-12.3) fl Neut % (Auto) 54.8 (34.0-67.9) % Lymph % (Auto) 27.8 (21.8-53.1) % [place] % (Auto) 13.4 H (5.3-12.2) % Eos % (Auto) 0.7 L (0.8-7.0) Baso % (Auto) 0.5 (0.1-1.2) % Neut # (Auto) 3.11 (1.78-5.38) K/mm3 Lymph # (Auto) 1.58 (1.32-3.57) K/mm3 [place] # (Auto) 0.76 (0.30-0.82) K/mm3 Eos # (Auto) 0.04 (0.04-0.54) K/mm3 Baso # (Auto) 0.03 (0.01-0.08) K/mm3 Manual Slide Review Abnormal smear Sodium 141 (136-145) mEq/L Potassium 3.9 (3.5-5.1) mEq/L Chloride 107 (98-107) mEq/L Carbon Dioxide 21 (21-32) mEq/L Anion Gap 16.9 H (5-15) BUN 14 (7-18) mg/dL Creatinine 0.8 (0.7-1.3) mg/dL Est Cr Clr Drug Dosing 151.27 mL/min Estimated GFR (MDRD) > 60 (>60) mL/min BUN/Creatinine Ratio 17.5 (14-18) Glucose 102 H (70-99) mg/dL Calcium 8.3 L (8.5-10.1) mg/dL Total Bilirubin 0.4 (0.2-1.0) mg/dL AST 84 H (15-37) U/L ALT 152 H (16-63) U/L Alkaline Phosphatase 66 (46-116) U/L Total Protein 7.8 (6.4-8.2) g/dl Albumin 3.0 L (3.4-5.0) g/dl Globulin 4.8 gm/dL Albumin/Globulin Ratio 0.6 L (1-2) DANNY Results - Last 24 hrs: Microbiology 10/16/20 16:32 Aerobic Blood Culture - Preliminary Blood - Venous NO GROWTH AFTER 3 DAYS Anaerobic Blood Culture - Preliminary NO GROWTH AFTER 3 DAYS 10/16/20 16:20 Aerobic Blood Culture - Preliminary Blood - Venous - Lab Draw NO GROWTH AFTER 3 DAYS Anaerobic Blood Culture - Preliminary NO GROWTH AFTER 3 DAYS Med Orders - Current: Current Medications Acetaminophen (Acetaminophen 325 Mg Tab) 650 mg PO Q4H PRN PRN Reason: Pain (Mild 1-3)/fever Last Admin: 10/19/20 21:58 Dose: 650 mg Documented by: Albuterol (Albuterol 0.083% 2.5 Mg/3 Ml Neb Soln) 2.5 mg NEB Q2H PRN PRN Reason: Shortness Of Breath/wheezing Ascorbic Acid (Ascorbic Acid 500 Mg Tab) 500 mg PO BID [facility] Last Admin: 10/20/20 08:36 Dose: 500 mg Documented by: Cholecalciferol (Cholecalciferol (Vitamin D3) 5,000 Unit Cap) 5,000 unit PO DAILY [facility] Last Admin: 10/20/20 08:36 Dose: 5,000 unit Documented by: Dexamethasone (Dexamethasone 4 Mg Tab) 6 mg PO DAILY [facility] Stop: 10/25/20 09:01 Last Admin: 10/20/20 08:37 Dose: 6 mg Documented by: Docusate Sodium (Docusate Sodium 100 Mg Cap) 100 mg PO BID PRN PRN Reason: Constipation Enoxaparin Sodium (Enoxaparin 40 Mg/0.4 Ml Syringe) 40 mg SUBCUT DAILY [facility] Last Admin: 10/20/20 08:37 Dose: 40 mg Documented by: Remdesivir 100 mg/ Sodium (Chloride) 100 mls @ 100 mls/hr IV Q24H [facility] Stop: 10/20/20 17:59 Last Admin: 10/19/20 17:55 Dose: 100 mls/hr Documented by: Loperamide HCl (Loperamide 2 Mg Cap) 2 mg PO Q6H PRN PRN Reason: Diarrhea Last Admin: 10/17/20 17:53 Dose: 2 mg Documented by: Lorazepam (Lorazepam 0.5 Mg Tab) 0.5 mg PO DAILY PRN PRN Reason: Anxiety Last Admin: 10/18/20 13:58 Dose: 0.5 mg Documented by: Ondansetron HCl (Ondansetron 4 Mg Tab.Dis) 4 mg PO Q4H PRN PRN Reason: nausea, able to take PO Ondansetron HCl (Ondansetron 4 Mg/2 Ml Sdv) 4 mg IV Q4H PRN PRN Reason: Nausea/Vomiting Pantoprazole Sodium (Pantoprazole 40 Mg Tab.Cr) 40 mg PO DAILY@0700 [facility] Last Admin: 10/20/20 06:17 Dose: 40 mg Documented by: Sertraline HCl (Sertraline 50 Mg Tab) 100 mg PO DAILY [facility] Last Admin: 10/20/20 08:36 Dose: 100 mg Documented by: Zinc Sulfate (Zinc Sulfate 220 Mg Cap) 220 mg PO DAILY [facility] Last Admin: 10/20/20 08:37 Dose: 220 mg Documented by: Discontinued Medications Dexamethasone (Dexamethasone 4 Mg/Ml 5 Ml Mdv) 6 mg IV ONETIME ONE Stop: 10/16/20 17:18 Last Admin: 10/16/20 18:12 Dose: 6 mg Documented by: Dexamethasone (Dexamethasone 10 Mg/Ml Sdv) 6 mg IVPUSH DAILY [facility] Stop: 10/25/20 09:01 Last Admin: 10/18/20 09:38 Dose: 6 mg Documented by: Remdesivir 200 mg/ Sodium (Chloride) 250 mls @ 250 mls/hr IV ONETIME ONE Stop: 10/16/20 18:16 Last Admin: 10/16/20 18:10 Dose: 250 mls/hr Documented by: Sertraline HCl (Sertraline 50 Mg Tab) 100 mg PO [facility] Stop: 10/18/20 13:51 Last Admin: 10/18/20 13:58 Dose: 100 mg Documented by: - Exam Quality Assessment: Reports: Supplemental Oxygen, DVT Prophylaxis General: Reports: Alert Lungs: Reports: Clear to Auscultation, Normal Respiratory Effort Cardiovascular: Reports: Regular Rate, Regular Rhythm GI/Abdominal Exam: Normal Bowel Sounds, Soft, Non-Tender, No Distention Extremities: Normal Inspection, No Pedal Edema Psy/Mental Status: Reports: Normal Affect, Normal Mood
[2020-10-20 12:47] VITALS: BP 127/85; PULSE 62
[2020-10-20] MEDS ORDERED: REMDESIVIR 100 MG in Sodium Chloride 0.9% 100 ML IV ONE (13:00)
[2020-10-20] MEDS: LORazepam 0.5 MG Tab PO PRN (14:46)
== END 2020-10-20 15:30 | disposition home or self-care (01) | DRG 177 ==
LOC: JD.ED 15:26 → JD.MS 16:56
PROVIDERS: ADMIT Hospitalist; ATTEND Hospitalist
PROC: XW033E5 Introduction of Remdesivir Anti-infective into Peripheral Vein, Percutaneous Approach, New Technology Group 5 (ICD-10-PCS; principal; 2020-10-16)
PROC: XW13325 Transfusion of Convalescent Plasma (Nonautologous) into Peripheral Vein, Percutaneous Approach, New Technology Group 5 (ICD-10-PCS; 2020-10-16)
DX: U07.1 COVID-19 (principal); J96.01 Acute respiratory failure with hypoxia; J12.82 Pneumonia due to coronavirus disease 2019; F41.9 Anxiety disorder, unspecified; F32.9 Major depressive disorder, single episode, unspecified; I10 Essential (primary) hypertension; K21.9 Gastro-esophageal reflux disease without esophagitis; Z90.89 Acquired absence of other organs; Z79.899 Other long term (current) drug therapy
CPT/HCPCS: 36415; 36600; 71045; 71045-26; 80048; 80076; 81001; 82728; 82803; 83605; 83615; 85025; 85379; 85610; 85730; 86140; 87040; 93005; 94667; 94668; 94762; 99222; 99232; 99239; 99284; 99285-25; A9270-GY; J1100; J1650; J7050; J8540

== ENCOUNTER → 2022-01-25 | Day surgery (SDC) | payer OTHER ==
[~2022-01-25] MED LIST: Lactated Ringers 1,000 ML IV SCH; Lidocaine 1% 2 ML ONE; Lidocaine 1%/Sod Bicarbonate in NS 8.4% 1 ML Syringe IDERM PRN; Midazolam 1 MG/ML 2 ML SDV ONE; Ondansetron 4 MG/2 ML SDV IVPUSH PRN; Propofol 200 MG/20 ML SDV ONE; Sodium Chloride 0.9% 10 ML Syringe FLUSH PRN; Sodium Chloride 0.9% 10 ML Syringe FLUSH SCH; fentaNYL 100 MCG/2 ML SDV IVPUSH PRN; fentaNYL 100 MCG/2 ML SDV ONE
[2022-01-25 15:03] VITALS: BP 128/81; PULSE 74
== END | disposition home or self-care (01) ==
LOC: JD.SDS 10:05
PROVIDERS: ATTEND Surgery
DX: Z12.11 Encounter for screening for malignant neoplasm of colon (principal); K29.50 Unspecified chronic gastritis without bleeding; B96.81 Helicobacter pylori [H. pylori] as the cause of diseases classified elsewhere; K31.A0 Gastric intestinal metaplasia, unspecified; K44.9 Diaphragmatic hernia without obstruction or gangrene; K29.80 Duodenitis without bleeding; K56.2 Volvulus; I10 Essential (primary) hypertension; E11.9 Type 2 diabetes mellitus without complications; E78.5 Hyperlipidemia, unspecified; K21.9 Gastro-esophageal reflux disease without esophagitis; F17.200 Nicotine dependence, unspecified, uncomplicated; I26.99 Other pulmonary embolism without acute cor pulmonale; F32.A Depression, unspecified; F41.9 Anxiety disorder, unspecified; E66.9 Obesity, unspecified; Z68.43 Body mass index [BMI] 50.0-59.9, adult; Z86.16 Personal history of COVID-19; Z86.718 Personal history of other venous thrombosis and embolism; Z90.49 Acquired absence of other specified parts of digestive tract; Z80.0 Family history of malignant neoplasm of digestive organs; Z98.890 Other specified postprocedural states; Z79.899 Other long term (current) drug therapy; Z88.1 Allergy status to other antibiotic agents
CPT/HCPCS: 43239; 45378; J2250; J2704; J3010; J7120; 00813

== ENCOUNTER 2024-02-04 15:55 | Emergency (ER) | payer SELFPAY ==
[2024-02-04 16:08] VITALS: PULSE 96
[2024-02-04 16:15] LABS: BASOPHILS ABSOLUTE AUTO 0.1 K/mm3 (0.0-0.2); BASOPHILS PERCENT AUTO 0.5 % (0.0-1.0); EOSINOPHILS ABSOLUTE AUTO 0.7 K/mm3 (0.0-0.4); EOSINOPHILS PERCENT AUTO 5.3 % (0.0-6.0); HEMOGLOBIN 14.7 gm/dl (14.0-18.0); IMMATURE GRAN ABSOLUTE AUTO 0.04 K/mm3 (0.00-0.05); IMMATURE GRAN PERCENT AUTO 0.3 % (0.0-0.4); LYMPHOCYTES ABSOLUTE AUTO 2.2 K/mm3 (1.0-4.8); LYMPHOCYTES PERCENT AUTO 16.8 % (24.0-44.0); MEAN CORPUSCULAR HEMOGLOBIN 27.8 pg (28.0-32.0); MEAN CORPUSCULAR HGB CONC 32.7 g/dl (32.0-36.0); MEAN CORPUSCULAR VOLUME 85.1 fl (83.0-99.0); MEAN PLATELET VOLUME 10.5 fl (9.4-12.4); MONOCYTES ABSOLUTE AUTO 0.8 K/mm3 (0.0-0.8); NEUTROPHILS ABSOLUTE AUTO 9.2 K/mm3 (1.8-7.7); NEUTROPHILS PERCENT AUTO 71.1 % (41.0-71.0); PLATELET COUNT,PLT 333 K/mm3 (150-400); RED BLOOD CELL COUNT 5.29 M/mm3 (4.52-5.90)
[2024-02-04 16:41] LABS: A/G RATIO 0.8 (1-2); ALBUMIN 3.8 g/dl (3.4-5.0); ANION GAP 16.8 (5-15); BILIRUBIN TOTAL 0.5 mg/dL (0.2-1.0); EST CRCL DRUG DOSING (CG) 114.3 mL/min; POTASSIUM,K 3.8 mEq/L (3.5-5.1); PROTEIN TOTAL,TP 8.3 g/dl (6.4-8.2)
[2024-02-04] MEDS: Sodium Chloride 0.9% 10 ML Syringe FLUSH PRN (17:37)
[2024-02-04] MEDS: Iopamidol 755 Mg/ML 100 ML Bottle IVPUSH ONE (17:37)
[2024-02-04] MEDS: Ketorolac 30 MG/ML SDV IVPUSH ONE (18:21)
[2024-02-04 18:25] VITALS: BP 153/88
== END 2024-02-04 18:29 | disposition home or self-care (01) ==
LOC: JD.ED 15:55
DX: R07.89 Other chest pain (principal); Z86.16 Personal history of COVID-19; F17.210 Nicotine dependence, cigarettes, uncomplicated; Z88.1 Allergy status to other antibiotic agents
CPT/HCPCS: 36415; 71046; 71260; 80053; 84484; 85025; 85379; 93005; 96374; 99285; J1885; J3490; Q9967; 93010; 99284